=== PATIENT | male | born 1990 | race Caucasian/White ===

== ENCOUNTER 2016-11-24 21:11 | Emergency (ER) | payer OTHER ==
[2016-11-24] MEDS ORDERED: NORCO, ANEXSIA 5/325MG TABLET (HYDROcodone/ACETAMINOPHEN) As Ordered ONE (22:47)
[2016-11-24 22:53] LABS: BASO # 0.1 K/mm3 (0.0-0.2); BASO % 1.1 % (0.0-1.0); EOS # 0.2 K/mm3 (0.0-0.50); EOS % 1.8 % (0.0-3.0); LARGE UNSTAINED CELL # 0.2 K/mm3 (0.0-0.4); LARGE UNSTAINED CELL % 1.3 % (0.0-4.0); LYMPH # 3.8 K/mm3 (1.5-6.5); LYMPH % 28.3 % (24.0-44.0); MEAN CORPUSCULAR HEMOGLOBIN 29.6 pg (27.0-33.0); MEAN CORPUSCULAR HGB CONC 34.3 g/dl (32.0-36.5); MEAN CORPUSCULAR VOLUME 86.3 fl (80.0-96.0); MONO # 0.8 K/mm3 (0.0-0.8); NEUTROPHILS # 7.8 K/mm3 (1.8-7.7); NEUTROPHILS % 61.6 % (36.0-66.0); PLATELET COUNT, AUTOMATED 170 k/mm3 (150-450); RED CELL DISTRIBUTION WIDTH 12.6 % (11.5-14.5); WHITE BLOOD COUNT 12.7 K/mm3 (4.0-10.0)
[2016-11-24 23:10] LABS: ERYTHROCYTE SEDIMENTATION RATE 2 mm/hr (0-15)
[2016-11-24 23:18] LABS: ANION GAP 7 MEQ/L (8-16); BLOOD UREA NITROGEN 12 MG/DL (7-18); CALCIUM LEVEL 8.5 MG/DL (8.5-10.1); CARBON DIOXIDE LEVEL 27 MEQ/L (21-32); CHLORIDE LEVEL 108 MEQ/L (98-107); CREATININE FOR GFR 0.78 MG/DL (0.70-1.30); GLOMERULAR FILTRATION RATE > 60.0 (>60); GLUCOSE, FASTING 98 MG/DL (70-105); POTASSIUM SERUM 3.8 MEQ/L (3.5-5.1); SODIUM LEVEL 142 MEQ/L (136-145); URIC ACID 2.5 MG/DL (3.5-7.2)
[2016-11-24] MEDS ORDERED: CLINDAMYCIN INJ 900MG/6ML VIAL As Ordered ONE (23:59)
[2016-11-25] MEDS ORDERED: NORCO 5/325MG TABLET (BULK) As Ordered ONE (00:44)
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
--- NOTE | 2016-11-25 11:24 | REP ---
Clinical: Deformity and swelling. Technique: AP, lateral, bilateral oblique and sunrise views of the left knee. Findings: Moderate prepatellar soft tissue swelling is appreciated without evidence for acute fracture, dislocation, or effusion. The osseous structures and joint spaces appear relatively normal. No subcutaneous emphysema or foreign body identified. Impression: Prepatellar soft tissue swelling. No acute fracture or dislocation. No foreign body. Signed by Jack Ernandez MD 11/25/2016 01:56 A
[2016-11-26] MEDS ORDERED: KEPP1000 PO (02:58)
[2016-11-26] MEDS ORDERED: FISH1000 PO (02:58)
[2016-11-26] MEDS ORDERED: CARB400T4 PO (02:58)
[2016-11-26] MEDS ORDERED: VITMTA PO (02:58)
[2016-11-26] MEDS ORDERED: BACT800T5 PO (02:58)
[2016-11-26] MEDS ORDERED: HYDR-3716 PO (02:58)
--- NOTE | 2016-11-27 01:52 | EDDOCDS ---
Physician Documentation [facility] Name: Hari Ventura Age: 26 yrs Sex: Male : 1990 Arrival Date: 11/24/2016 Time: 21:11 Bed I1 / M1 Private MD: NO PRIMARY PHYSICIAN, . Disposition: 11/25/16 00:42 Discharged to Home/Self Care. Impression: Cellulitis of left lower limb - KNEE. - Condition is Stable. - Discharge Instructions: Cellulitis. - Prescriptions for Bactrim DS 800- 160 mg Oral Tablet - take 1 tablet by ORAL route every 12 hours for 10 days; 20 tablet. - Medication Reconciliation, Local Pharmacy Hours form. - Follow up: Emergency Department; When: Tomorrow; Reason: Wound/Symptom Recheck, Recheck today's complaints, Continuance of care. - Problem is new. - Symptoms have improved. - Notes: USE MEDICATION INSTRUCTED, FOLLOW UP IN THE ER TOMORROW, RETURN TO THE ER SOONER IF SYMPTOMS WORSEN OR BECOME CONCERNING Historical: - Allergies: no known allergies; - Home Meds: 1. Tegretol 200 mg Oral tab 1 tab every 12 hours 2. Keppra 1,000 mg Oral tab 3 tab daily - PMHx: Seizure Disorder; - PSHx: spinal surgery for broken L2 2 rods and 4 screws placed in lumbar area.; - Social history: Smoking status: Patient uses tobacco products, light tobacco smoker. No barriers to communication noted, The patient speaks fluent Armenian. - Family history: Not pertinent. - : The pt / caregiver states he / she is not on anticoagulants. Home medication list is obtained from the patient. - Exposure Risk Screening:: None identified. Vital Signs: 11/24 21:12 BP 127 / 68; Pulse 66; Resp 18; Temp 98.1; Pulse Ox 100% ; Weight 59.87 kg / 131.99 elp lbs; Height 5 ft. 10 in. (177.80 cm); Pain 7/10; 11/25 00:49 BP 130 / 70; Pulse 70; Resp 18; Temp 98.8(O); Pulse Ox 99% on R/A; Pain 3/10; jmb 11/24 21:12 Body Mass Index 18.94 (59.87 kg, 177.80 cm) elp MDM: 11/24 22:20 -Blood Culture (Adults Only), peripheral from different site, or from device/port/PICC ck7 etc. if present ordered. 22:20 IV Saline Lock ordered. ck7 22:20 NS 0.9% 1000 ml IV at bolus once ordered. ck7 22:20 HYDROcodone-acetaminophen 5 mg-325 mg 1 tabs PO once ordered. ck7 22:22 Knee, Complete Ordered. EDMS 22:22 CBC with Diff Ordered. EDMS 22:22 ESR Ordered. EDMS 22:22 CRP Ordered. EDMS 22:22 MED Profile Ordered. EDMS 22:22 -Blood Culture Ordered. EDMS 22:22 Uric Acid Ordered. EDMS 22:55 -Blood Culture (Adults Only), peripheral from different site, or from device/port/PICC jmb etc. if present complete. 23:22 CBC with Diff Reviewed. ck7 23:22 CRP Reviewed. ck7 23:22 MED Profile Reviewed. ck7 23:22 Uric Acid Reviewed. ck7 23:22 ESR Reviewed. ck7 23:49 Clindamycin 900 mg IVPB once over 30 mins; dilute in 50mL of NS or D5W ordered. ck7 11/25 00:[address] [facility] 00:43 HYDROcodone-acetaminophen 4 pack- 5 mg-325 mg 1 packets PO Per package directions; ck7 Dispense with patient. 1 po q4h prn for pain ordered. 01:27 [facility] Payment Agreement was scanned into [employer] and attached to record. [facility] 11:23 T-Sheet-- Draft Copy was scanned into [employer] and attached to record. gb Administered Medications: 11/24 22:55 Drug: NS 0.9% 1000 ml [sodium chloride 0.9 % intravenous solution] Route: IV; Rate: jmb bolus; Site: left antecubital; 22:55 Drug: HYDROcodone-acetaminophen 1 tabs [hydrocodone 5 mg-acetaminophen 325 mg tablet (1 jmb tabs)] Route: PO; 11/25 00:06 Drug: Clindamycin 900 mg [clindamycin 600 mg/50 mL in 5 % dextrose intravenous jmb piggyback] Route: IVPB; Infused Over: 30 mins; Site: left antecubital; 00:48 Drug: HYDROcodone-acetaminophen 4 pack- 1 packets [hydrocodone 5 mg-acetaminophen 325 jmb mg tablet (1 tabs)] {Co-Signature: cz (Ethan Ortega RN).} Route: PO; Signatures: Dispatcher [employer] EDAlvina Mueller, Reg Reg gb Shavonne Mendez RN RN rs3 Olvin Mattson, RPA-C RPA-Cck7 Johny Anaya RN RN jmb Hook, Sandra [facility] Ethan umaña The chart was reviewed and I authenticate all verbal orders and agree with the evaluation and treatment provided.Attachments: 01:27 [facility] Payment Agreement [facility] 11:23 T-Sheet-- Draft Copy Chart Complete MTDD
--- NOTE | 2016-11-27 01:52 | EDDOCDS ---
Physician Documentation [facility] Name: Hari Ventura Age: 26 yrs Sex: Male : 1990 Arrival Date: 11/24/2016 Time: 21:11 Bed I1 / M1 Private MD: NO PRIMARY PHYSICIAN, . Disposition: 11/25/16 00:42 Discharged to Home/Self Care. Impression: Cellulitis of left lower limb - KNEE. - Condition is Stable. - Discharge Instructions: Cellulitis. - Prescriptions for Bactrim DS 800- 160 mg Oral Tablet - take 1 tablet by ORAL route every 12 hours for 10 days; 20 tablet. - Medication Reconciliation, Local Pharmacy Hours form. - Follow up: Emergency Department; When: Tomorrow; Reason: Wound/Symptom Recheck, Recheck today's complaints, Continuance of care. - Problem is new. - Symptoms have improved. - Notes: USE MEDICATION INSTRUCTED, FOLLOW UP IN THE ER TOMORROW, RETURN TO THE ER SOONER IF SYMPTOMS WORSEN OR BECOME CONCERNING Historical: - Allergies: no known allergies; - Home Meds: 1. Tegretol 200 mg Oral tab 1 tab every 12 hours 2. Keppra 1,000 mg Oral tab 3 tab daily - PMHx: Seizure Disorder; - PSHx: spinal surgery for broken L2 2 rods and 4 screws placed in lumbar area.; - Social history: Smoking status: Patient uses tobacco products, light tobacco smoker. No barriers to communication noted, The patient speaks fluent Swedish. - Family history: Not pertinent. - : The pt / caregiver states he / she is not on anticoagulants. Home medication list is obtained from the patient. - Exposure Risk Screening:: None identified. Vital Signs: 11/24 21:12 BP 127 / 68; Pulse 66; Resp 18; Temp 98.1; Pulse Ox 100% ; Weight 59.87 kg / 131.99 elp lbs; Height 5 ft. 10 in. (177.80 cm); Pain 7/10; 11/25 00:49 BP 130 / 70; Pulse 70; Resp 18; Temp 98.8(O); Pulse Ox 99% on R/A; Pain 3/10; jmb 11/24 21:12 Body Mass Index 18.94 (59.87 kg, 177.80 cm) elp MDM: 11/24 22:20 -Blood Culture (Adults Only), peripheral from different site, or from device/port/PICC ck7 etc. if present ordered. 22:20 IV Saline Lock ordered. ck7 22:20 NS 0.9% 1000 ml IV at bolus once ordered. ck7 22:20 HYDROcodone-acetaminophen 5 mg-325 mg 1 tabs PO once ordered. ck7 22:22 Knee, Complete Ordered. EDMS 22:22 CBC with Diff Ordered. EDMS 22:22 ESR Ordered. EDMS 22:22 CRP Ordered. EDMS 22:22 MED Profile Ordered. EDMS 22:22 -Blood Culture Ordered. EDMS 22:22 Uric Acid Ordered. EDMS 22:55 -Blood Culture (Adults Only), peripheral from different site, or from device/port/PICC jmb etc. if present complete. 23:22 CBC with Diff Reviewed. ck7 23:22 CRP Reviewed. ck7 23:22 MED Profile Reviewed. ck7 23:22 Uric Acid Reviewed. ck7 23:22 ESR Reviewed. ck7 23:49 Clindamycin 900 mg IVPB once over 30 mins; dilute in 50mL of NS or D5W ordered. ck7 11/25 00:[address] [facility] 00:43 HYDROcodone-acetaminophen 4 pack- 5 mg-325 mg 1 packets PO Per package directions; ck7 Dispense with patient. 1 po q4h prn for pain ordered. 01:27 [facility] Payment Agreement was scanned into [employer] and attached to record. [facility] 11:23 T-Sheet-- Draft Copy was scanned into [employer] and attached to record. gb Administered Medications: 11/24 22:55 Drug: NS 0.9% 1000 ml [sodium chloride 0.9 % intravenous solution] Route: IV; Rate: jmb bolus; Site: left antecubital; 22:55 Drug: HYDROcodone-acetaminophen 1 tabs [hydrocodone 5 mg-acetaminophen 325 mg tablet (1 jmb tabs)] Route: PO; 11/25 00:06 Drug: Clindamycin 900 mg [clindamycin 600 mg/50 mL in 5 % dextrose intravenous jmb piggyback] Route: IVPB; Infused Over: 30 mins; Site: left antecubital; 00:48 Drug: HYDROcodone-acetaminophen 4 pack- 1 packets [hydrocodone 5 mg-acetaminophen 325 jmb mg tablet (1 tabs)] {Co-Signature: cz (Ethan Ortega RN).} Route: PO; Signatures: Dispatcher [employer] EDAlvina Mueller, Reg Reg gb Shavonne Mendez RN RN rs3 Olvin Mattson, RPA-C RPA-Cck7 Johny Anaya RN RN jmb Hook, Sandra [facility] Ethan umaña The chart was reviewed and I authenticate all verbal orders and agree with the evaluation and treatment provided.Attachments: 01:27 [facility] Payment Agreement [facility] 11:23 T-Sheet-- Draft Copy Chart Complete MTDD
--- NOTE | 2016-11-27 01:52 | EDDOCDS ---
Nurse's Notes [facility] Name: Hari Ventura Age: 26 yrs Sex: Male : 1990 Arrival Date: 11/24/2016 Time: 21:11 Bed I1 / M1 Private MD: NO PRIMARY PHYSICIAN, . Diagnosis: Cellulitis of left lower limb-KNEE Presentation: 11/24 21:15 Presenting complaint: Patient states: Woke up with L knee swelling/redness/ pain this rs3 morning. no known injury. Adult Sepsis Screening: The patient does not have new or worsening altered mentation. Adult Sepsis Screening: Patient's respiratory rate is less than 22. Systolic blood pressure is greater than 100. Patient has a qSOFA score of 0- Negative Sepsis Screen. Suicide/Homicide risk assessment- the patient denies having any suicidal and/or homicidal ideations and does not present with any other emotional, behavioral or mental health complaints. Status: Patient is not a guest services or dependent. Transition of care: patient was not received from another setting of care. 21:15 Acuity: ESTELLE Level 3 rs3 21:15 Method Of Arrival: Walkin/Carried/Asstd rs3 Triage Assessment: 21:17 General: Appears in no apparent distress. Pain: Location: left knee. HIV screening NA rs3 for this visit Offered previously. Historical: - Allergies: no known allergies; - Home Meds: 1. Tegretol 200 mg Oral tab 1 tab every 12 hours 2. Keppra 1,000 mg Oral tab 3 tab daily - PMHx: Seizure Disorder; - PSHx: spinal surgery for broken L2 2 rods and 4 screws placed in lumbar area.; - Social history: Smoking status: Patient uses tobacco products, light tobacco smoker. No barriers to communication noted, The patient speaks fluent Nigerian. - Family history: Not pertinent. - : The pt / caregiver states he / she is not on anticoagulants. Home medication list is obtained from the patient. - Exposure Risk Screening:: None identified. Screenin:55 Screening information is obtained from the patient. Fall risk: No risks identified. jmb Assistance ADL's: requires no assistance with activities of daily living. Abuse/DV Screen: The patient / caregiver reports he/she is: not in a situation that causes fear, pain or injury. Nutritional screening: No deficits noted. home support is adequate. 11/25 00:49 Advance Directives: Currently, there is no health care proxy. There is no active DNR jmb order. There is no living will. There is no Power of Nurse Licensed Practical. Assessment: 11/24 22:55 General: Appears in no apparent distress, comfortable, Behavior is appropriate for age, jmb cooperative. Pain: Location: left knee Pain currently is 10 out of 10 on a pain scale. Neurological: Level of Consciousness is awake, alert, obeys commands, Oriented to person, place, time, Ceramics Test Engineer are equal bilaterally Speech is normal, Facial symmetry appears normal, Facial symmetry: tongue is midline. Cardiovascular: Capillary refill < 3 seconds Heart tones S1 S2 present Pulses are all present. Rhythm is regular. Respiratory: Airway is patent Respiratory effort is even, unlabored, Respiratory pattern is regular, symmetrical, Breath sounds are clear bilaterally. GI: Abdomen is flat, non- distended Bowel sounds present X 4 quads. Abd is soft X 4 quads. Derm: Skin is pink, warm & dry. Musculoskeletal: Range of motion intact in all extremities. 23:33 General: Appears in no apparent distress, comfortable, Behavior is appropriate for age, jmb cooperative, Patient sitting on stretcher, texting on cell phone. NO voiced complaints at this time. . Neurological: Level of Consciousness is awake, alert, obeys commands, Oriented to person, place, time. Respiratory: Airway is patent Respiratory effort is even, unlabored, Respiratory pattern is regular, symmetrical. 11/25 00:06 General: Appears in no apparent distress, comfortable, Behavior is appropriate for age, jmb cooperative, Patient sitting on side of stretcher, antibiotic infusing per Tyler Gonzales's order. NO voiced complaints at this time. . Neurological: Level of Consciousness is awake, alert, obeys commands. Respiratory: Airway is patent Respiratory effort is even, unlabored, Respiratory pattern is regular, symmetrical. 00:49 General: Patient instructed on discharge instructions. Patient asked if there were any b questions regarding discharge, patient stated no. IV discontinued per hospital policy. Patient signed discharge instructions. Patient discharged in stable condition. . Vital Signs: 11/24 21:12 BP 127 / 68; Pulse 66; Resp 18; Temp 98.1; Pulse Ox 100% ; Weight 59.87 kg; Height 5 elp ft. 10 in. (177.80 cm); Pain 7/10; 11/25 00:49 BP 130 / 70; Pulse 70; Resp 18; Temp 98.8(O); Pulse Ox 99% on R/A; Pain 3/10; jmb 11/24 21:12 Body Mass Index 18.94 (59.87 kg, 177.80 cm) elp Vitals: 11/24 21:12 Log In Time: November 24, 2016 at 21:10. elp ED Course: 21:12 Patient visited by Katie Canales PCA. elp 21:12 NO PRIMARY PHYSICIAN, . is Private Physician. elp 21:12 Patient moved to Waiting elp 21:13 Patient visited by Katie Canales PCA. elp 21:13 Patient moved to Pre RCE elp 21:17 Triage Initiated rs3 21:57 Patient moved to Triage 3 cln 22:01 Ol[facility] Mattson [facility]-C [facility] ck7 22:01 Milton Stoner DO is Attending Physician. ck7 22:01 Patient visited by Olvin Mattson RPA-C. ck7 22:21 Patient moved to I1 / M1 kmg1 22:24 Patient moved to Radiology rolf 22:34 Patient moved to I1 / M1 rolf 22:40 Patient visited by Olvin Mattson RPA-C. ck7 22:46 Uric Acid Sent. jmb 22:46 MED Profile Sent. jmb 22:46 CRP Sent. jmb 22:47 ESR Sent. jmb 22:47 CBC with Diff Sent. jmb 22:55 The patient / caregiver is instructed regarding the plan of care and ED course. afsanehb 22:55 Inserted saline lock: 20 gauge in left antecubital area and blood collected. The b patient tolerated the procedure well. Labs drawn. (by ED staff). Sent per order to lab. Labs/Blood culture drawn. 22:57 Patient visited by Johny Anaya,JAGDEEP. romeo 23:33 Patient visited by Johny Anaya,JAGDEEP. jmb 11/25 00:07 Patient visited by Johny Anaya,RN. jmb 00:38 Patient visited by Olvin Mattson RPA-C. ck7 00:49 Discontinued lock intact, bleeding controlled, pressure dressing applied, No jmb redness/swelling at site. No procedures done that require assistance. 01: [facility] Payment Agreement was scanned into [employer] and attached to record. [facility] 11:23 T-Sheet-- Draft Copy was scanned into [employer] and attached to record. gb 11:53 Knee, Complete Returned. EDMS Administered Medications: 11/24 22:55 Drug: NS 0.9% 1000 ml [sodium chloride 0.9 % intravenous solution] Route: IV; Rate: jmb bolus; Site: left antecubital; 22:55 Drug: HYDROcodone-acetaminophen 1 tabs [hydrocodone 5 mg-acetaminophen 325 mg tablet (1 jmb tabs)] Route: PO; 11/25 00:06 Drug: Clindamycin 900 mg [clindamycin 600 mg/50 mL in 5 % dextrose intravenous jmb piggyback] Route: IVPB; Infused Over: 30 mins; Site: left antecubital; 00:48 Drug: HYDROcodone-acetaminophen 4 pack- 1 packets [hydrocodone 5 mg-acetaminophen 325 jmb mg tablet (1 tabs)] {Co-Signature: cz (Ethan Ortega RN).} Route: PO; Order Results: Lab Order: CBC with Diff; SPEC'M 11/24/16 22:42 Test: WHITE BLOOD COUNT; Value: 12.7; Range: 4.0-10.0; Abnormal: Above high normal; Units: K/mm3; Status: F Test: RED BLOOD COUNT; Value: 4.96; Range: 4.30-6.10; Units: M/mm3; Status: F Test: HEMOGLOBIN; Value: 14.7; Range: 14.0-18.0; Units: g/dl; Status: F Test: HEMATOCRIT; Value: 42.8; Range: 42.0-52.0; Units: %; Status: F Test: MEAN CORPUSCULAR VOLUME; Value: 86.3; Range: 80.0-96.0; Units: fl; Status: F Test: MEAN CORPUSCULAR HEMOGLOBIN; Value: 29.6; Range: 27.0-33.0; Units: pg; Status: F Test: MEAN CORPUSCULAR HGB CONC; Value: 34.3; Range: 32.0-36.5; Units: g/dl; Status: F Test: RED CELL DISTRIBUTION WIDTH; Value: 12.6; Range: 11.5-14.5; Units: %; Status: F Test: PLATELET COUNT, AUTOMATED; Value: 170; Range: 150-450; Units: k/mm3; Status: F Test: NEUTROPHILS %; Value: 61.6; Range: 36.0-66.0; Units: %; Status: F Test: LYMPH %; Value: 28.3; Range: 24.0-44.0; Units: %; Status: F Test: MONO %; Value: 6.0; Range: 0.0-5.0; Abnormal: Above high normal; Units: %; Status: F Test: EOS %; Value: 1.8; Range: 0.0-3.0; Units: %; Status: F Test: BASO %; Value: 1.1; Range: 0.0-1.0; Abnormal: Above high normal; Units: %; Status: F Test: LARGE UNSTAINED CELL %; Value: 1.3; Range: 0.0-4.0; Units: %; Status: F Test: NEUTROPHILS #; Value: 7.8; Range: 1.8-7.7; Abnormal: Above high normal; Units: K/mm3; Status: F Test: LYMPH #; Value: 3.8; Range: 1.5-6.5; Units: K/mm3; Status: F Test: MONO #; Value: 0.8; Range: 0.0-0.8; Units: K/mm3; Status: F Test: EOS #; Value: 0.2; Range: 0.0-0.50; Units: K/mm3; Status: F Test: BASO #; Value: 0.1; Range: 0.0-0.2; Units: K/mm3; Status: F Test: LARGE UNSTAINED CELL #; Value: 0.2; Range: 0.0-0.4; Units: K/mm3; Status: F Lab Order: ESR; SPEC'M 11/24/16 22:42 Test: ERYTHROCYTE SEDIMENTATION RATE; Value: 2; Range: 0-15; Units: mm/hr; Status: F Lab Order: CRP; SPEC'M 11/24/16 22:42 Test: C REACTIVE PROTEIN QUANTITATIV; Value: 0.60; Range: 0.00-0.30; Abnormal: Above high normal; Units: MG/DL; Status: F Lab Order: MED Profile; SPEC'M 11/24/16 22:42 Test: GLUCOSE, FASTING; Value: 98; Range: 70-105; Units: MG/DL; Status: F Test: BLOOD UREA NITROGEN; Value: 12; Range: 7-18; Units: MG/DL; Status: F Test: CREATININE FOR GFR; Value: 0.78; Range: 0.70-1.30; Units: MG/DL; Status: F Test: GLOMERULAR FILTRATION RATE; Value: > 60.0; Range: >60; Status: F Test: SODIUM LEVEL; Value: 142; Range: 136-145; Units: MEQ/L; Status: F Test: POTASSIUM SERUM; Value: 3.8; Range: 3.5-5.1; Units: MEQ/L; Status: F Test: CHLORIDE LEVEL; Value: 108; Range: 98-107; Abnormal: Above high normal; Units: MEQ/L; Status: F Test: CARBON DIOXIDE LEVEL; Value: 27; Range: 21-32; Units: MEQ/L; Status: F Test: ANION GAP; Value: 7; Range: 8-16; Abnormal: Below low normal; Units: MEQ/L; Status: F Test: CALCIUM LEVEL; Value: 8.5; Range: 8.5-10.1; Units: MG/DL; Status: F Test Note: ; Units are mL/min/1.73 m2 Chronic Kidney Disease Staging per NKF: Stage I & II GFR >=60 Normal to Mildly Decreased Stage III GFR 30-59 Moderately Decreased Stage IV GFR 15-29 Severely Decreased Stage V GFR <15 Very Little GFR Left ESRD GFR <15 on COLLISION REPAIR TECHNICIAN Lab Order: -Blood Culture; SPEC'M 11/24/16 22:42 Test: BLOOD CULTURE; Value: No growth after 24 hours . All specimens observed; Status: F Test: BLOOD CULTURE; Value: for 5 days. Results final at that time.; Status: F Test: BLOOD CULTURE; Value: No Growth after 48 hours. All Specimens observed; Status: F Test: BLOOD CULTURE; Value: for 7 days. Results final at that time.; Status: F Lab Order: Uric Acid; SPEC'M 11/24/16 22:42 Test: URIC ACID; Value: 2.5; Range: 3.5-7.2; Abnormal: Below low normal; Units: MG/DL; Status: F Radiology Order: Knee, Complete Test: Knee, Complete REASON FOR EXAMINATION: Deformity/Swelling; Clinical: Deformity and swelling.; ; Technique: AP, lateral, bilateral oblique and sunrise views of the left knee.; ; Findings:; Moderate prepatellar soft tissue swelling is appreciated without evidence for; acute fracture, dislocation, or effusion. The osseous structures and joint; spaces appear relatively normal. No subcutaneous emphysema or foreign body; identified.; ; Impression:; Prepatellar soft tissue swelling.; No acute fracture or dislocation.; No foreign body.; ; ; Signed by; Jack Ernandez MD 11/25/2016 01:56 A; Outcome: 00:42 Discharge ordered by Provider. ck7 00:49 Discharge Assessment: Patient awake, alert and oriented x 3. No cognitive and/or jmb functional deficits noted. Patient verbalized understanding of disposition instructions. Patient awake and alert. obeys commands, Oriented to person, place and time. Patient verbalized understanding of disposition instructions. Patient has no functional deficits. patient administered narcotics - yes. Pt provided with safe discharge. The following High Risk Discharge criteria are identified: None. Discharged to home ambulatory, with parent. Condition: stable Condition: improved. Discharge instructions given to patient, Instructed on discharge instructions, follow up and referral plans. medication usage, Demonstrated understanding of instructions, medications, Pt was receptive of discharge instructions/ teaching. Prescriptions given X 1. No special radiology studies were completed. Property sent home with patient. 00:51 Patient left the ED. romeo Signatures: Dispatcher [employer] EDMS Elisa Mccoy, RN RN kmg1 Tyler Kirkland Gloria, Reg Reg gb Shavonne MendezRN RN rs3 Olvin Mattson, RPA-C RPA-Cck7 Katie Canales, LABORER PIPELINES LABORER PIPELINES Johny YaRN RN Kay Sinha Crystal, LABORER PIPELINES LABORER PIPELINES derrick Ortega RN cz Chart Complete MTDD
== END 2016-11-25 00:51 | disposition home or self-care (01) ==
LOC: M ED 21:11
DX: L03.116 Cellulitis of left lower limb (principal); G40.909 Epilepsy, unspecified, not intractable, without status epilepticus; Z79.899 Other long term (current) drug therapy; F17.210 Nicotine dependence, cigarettes, uncomplicated

== ENCOUNTER 2016-11-25 21:13 | Inpatient (IN) | payer OTHER ==
[~2016-11-25] VITALS: Ht 177.8 cm; Wt 66.0 kg
[2016-11-26 00:58] LABS: BASO # 0.1 K/mm3 (0.0-0.2); BASO % 0.5 % (0.0-1.0); EOS # 0.2 K/mm3 (0.0-0.50); EOS % 1.2 % (0.0-3.0); LARGE UNSTAINED CELL # 0.2 K/mm3 (0.0-0.4); LARGE UNSTAINED CELL % 1.2 % (0.0-4.0); LYMPH # 3.4 K/mm3 (1.5-6.5); LYMPH % 25.6 % (24.0-44.0); MEAN CORPUSCULAR HEMOGLOBIN 29.1 pg (27.0-33.0); MEAN CORPUSCULAR VOLUME 88.3 fl (80.0-96.0); MONO # 0.5 K/mm3 (0.0-0.8); NEUTROPHILS # 8.9 K/mm3 (1.8-7.7); NEUTROPHILS % 67.5 % (36.0-66.0); PLATELET COUNT, AUTOMATED 176 k/mm3 (150-450); RED CELL DISTRIBUTION WIDTH 11.7 % (11.5-14.5); WHITE BLOOD COUNT 13.2 K/mm3 (4.0-10.0)
[2016-11-26] MEDS ORDERED: NORCO, ANEXSIA 5/325MG TABLET (HYDROcodone/ACETAMINOPHEN) As Ordered ONE (01:05)
[2016-11-26 01:40] LABS: ERYTHROCYTE SEDIMENTATION RATE 7 mm/hr (0-15)
[2016-11-26] MEDS ORDERED: ZOSYN 3.375 GM VIAL (J2543) As Ordered ONE (02:09)
[2016-11-26] MEDS ORDERED: NORCO, ANEXSIA 5/325MG TABLET (HYDROcodone/ACETAMINOPHEN) PO PRN (02:45)
[2016-11-26] MEDS ORDERED: ACETAMINOPHEN TAB 650MG DOSE (2X325MG) PO PRN (02:45)
[2016-11-26] MEDS ORDERED: VANCOMYCIN 1000 MG/20 ML VIAL (J3370) As Ordered ONE (02:56)
[2016-11-26] MEDS ORDERED: FISH1000 PO (02:58)
[2016-11-26] MEDS ORDERED: CARB400T4 PO (02:58)
[2016-11-26] MEDS ORDERED: BACT800T5 PO (02:58)
[2016-11-26] MEDS ORDERED: HYDR-3716 PO (02:58)
[2016-11-26] MEDS ORDERED: VITMTA PO (02:58)
[2016-11-26] MEDS ORDERED: KEPP1000 PO (02:58)
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
--- NOTE | 2016-11-26 04:01 | EDDOCDS ---
Nurse's Notes [facility] Name: Hari Ventura Age: 26 yrs Sex: Male : 1990 Arrival Date: 11/25/2016 Time: 21:13 Bed 7 Private MD: NO PRIMARY PHYSICIAN, . Diagnosis: Cellulitis of left lower limb-LEFT KNEE Presentation: 11/25 21:38 Presenting complaint: Patient states: Was seen last night for left knee cellulitis, pt. lf1 states it was outlined and it has now moved about an inch outside the border. Pain is currently 7/10 and described as burning. Adult Sepsis Screening: The patient does not have new or worsening altered mentation. Patient's respiratory rate is less than 22. Systolic blood pressure is greater than 100. Patient has a qSOFA score of 0- Negative Sepsis Screen. Suicide/Homicide risk assessment- the patient denies having any suicidal and/or homicidal ideations and does not present with any other emotional, behavioral or mental health complaints. 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 Transition of care: patient was not received from another setting of care. 21:38 Acuity: ESTELLE Level 3 lf1 21:38 Method Of Arrival: Walkin/Carried/Asstd lf1 Triage Assessment: 21:41 General: Appears comfortable, Behavior is cooperative. Pain: Location: lateral aspect lf1 of left knee, posterior aspect of left knee, medial aspect of left knee and left knee Pain currently is 7 out of 10 on a pain scale. HIV screening NA for this visit Offered previously. Neurological: Level of Consciousness is awake, alert. Respiratory: Respiratory effort is even, unlabored. GI: Denies nausea, vomiting. Derm: Reports redness and swelling to left knee - unable to visualize in Triage area due to clothing. Historical: - Allergies: No known drug Allergies; - Home Meds: 1. Keppra 1,000 mg Oral tab 3 tab daily 2. Tegretol 200 mg Oral tab 1 tab every 12 hours 3. Bactrim DS 800-160 mg Oral tab 1 tab every 12 hours 4. hydrocodone-acetaminophen 5-325 mg Oral tab 1 tab every 6 hours (Last dose: 11/25/2016 18:00) - PMHx: Seizure Disorder; - PSHx: spinal surgery for broken L2 2 rods and 4 screws placed in lumbar area.; - Social history: Smoking status: Patient uses tobacco products, current every day smoker. No barriers to communication noted, The patient speaks fluent Algerian, Speaks appropriately for age, Preferred Language: Algerian. - Family history: Not pertinent. - : The pt / caregiver states he / she is not on anticoagulants. Home medication list is obtained from the patient. - Exposure Risk Screening:: None identified. Screenin:42 Screening information is obtained from the patient. Fall risk: No risks identified. lf1 Assistance ADL's: requires no assistance with activities of daily living. Abuse/DV Screen: The patient / caregiver reports he/she is: not in a situation that causes fear, pain or injury. Nutritional screening: No deficits noted. Advance Directives: Currently, there is no health care proxy. home support is adequate. Assessment: 11/26 00:00 Adult Sepsis Screening: The patient does not have new or worsening altered mentation. lf1 Patient's respiratory rate is less than 22. Systolic blood pressure is greater than 100. Patient has a qSOFA score of 0- Negative Sepsis Screen. General: Appears in no apparent distress, comfortable, Behavior is anxious, cooperative. Pain: Location: left knee Pain currently is 7 out of 10 on a pain scale. Neurological: Level of Consciousness is awake, alert. Respiratory: Respiratory effort is even, unlabored. GI: Denies nausea, vomiting. 01:00 General: Appears in no apparent distress, comfortable, Behavior is appropriate for age, js15 cooperative. Neurological: Level of Consciousness is awake, alert, obeys commands, Oriented to person, place, time. Cardiovascular: Capillary refill < 3 seconds. Respiratory: Airway is patent Respiratory effort is even, unlabored, Respiratory pattern is regular, symmetrical. Derm: Skin is red, Swollen area noted on left knee. 02:15 Reassessment: Patient appears in no apparent distress at this time. Pt resting on js15 stretcher, awake and alert; respirations even and unlabored; skin warm, dry. 03:30 Reassessment: Patient appears in no apparent distress at this time. Patient denies pain js15 at this time. Patient states feeling better. Patient states symptoms have improved. Pt resting comfortably on stretcher, lights dimmed; respirations even and unlabored; skin warm, dry. Vital Signs: 11/25 21:15 BP 120 / 59; Pulse 72; Resp 18 S; Temp 98.6(O); Pulse Ox 97% on R/A; Weight 59.87 kg gr2 (R); Height 5 ft. 10 in. (177.80 cm) (R); Pain 5/10; 11/26 00:00 BP 136 / 79; Pulse 84; Resp 18; Temp 97.9(TE); Pulse Ox 98% on R/A; Pain 7/10; lf1 03:23 BP 117 / 86; Pulse 82; Resp 18; Temp 96.0(O); Pulse Ox 97% on R/A; Pain 1/10; js15 11/25 21:15 Body Mass Index 18.94 (59.87 kg, 177.80 cm) gr2 Vitals: 11/25 21:15 Log In Time: November 25, 2016 at 21:15. gr2 ED Course: 21:14 Patient visited by Latasha Ramos. gr2 21:14 Patient moved to Waiting gr2 21:15 NO PRIMARY PHYSICIAN, . is Private Physician. gr2 21:16 Patient visited by Latasha Ramos. gr2 21:16 Patient moved to Pre RCE gr2 21:39 Triage Initiated lf1 23:58 Patient moved to 7 cz 11/26 00:00 Patient visited by Shea Miller,RN. lf1 00:01 Patient visited by Shea Miller,JAGDEEP. lf1 00:02 Olvin Mattson RPA-C is PHCP. ck7 00:02 Milton Stoner DO is Attending Physician. ck7 00:02 Patient visited by Olvin Mattson RPA-C. ck7 00:35 Patient visited by Olvin Mattson RPA-C. ck7 00:35 CRP Sent. cln 00:35 ESR Sent. cln 00:35 CBC with Diff Sent. cln 01:10 Patient visited by Olvin Mattson RPA-C. ck7 01:45 Patient visited by Olvin Mattson RPA-C. ck7 01:49 Inserted saline lock: 18 gauge in right forearm The patient tolerated the procedure js15 well. 01:58 Eri Antoine is Hospitalizing Provider. ck7 02:00 The patient / caregiver is instructed regarding the plan of care and ED course. js15 02:53 [facility] Payment Agreement was scanned into [employer] and attached to record. hs2 03:58 No procedures done that require assistance. js15 Administered Medications: 01:10 Drug: HYDROcodone-acetaminophen 1 tabs [hydrocodone 5 mg-acetaminophen 325 mg tablet (1 js15 tabs)] Route: PO; 02:19 Drug: Piperacillin-Tazobactam 3.375 grams [piperacillin-tazobactam 3.375 gram js15 intravenous solution] Route: IVPB; Infused Over: 30 mins; Site: right forearm; 03:35 Drug: vancomycin 1 grams [vancomycin 1,000 mg intravenous injection] Route: IVPB; js15 Infused Over: 60 mins; Site: right forearm; Order Results: Lab Order: CBC with Diff; SPEC'M 11/26/16 00:26 Test: WHITE BLOOD COUNT; Value: 13.2; Range: 4.0-10.0; Abnormal: Above high normal; Units: K/mm3; Status: F Test: RED BLOOD COUNT; Value: 4.75; Range: 4.30-6.10; Units: M/mm3; Status: F Test: HEMOGLOBIN; Value: 13.8; Range: 14.0-18.0; Abnormal: Below low normal; Units: g/dl; Status: F Test: HEMATOCRIT; Value: 41.9; Range: 42.0-52.0; Abnormal: Below low normal; Units: %; Status: F Test: MEAN CORPUSCULAR VOLUME; Value: 88.3; Range: 80.0-96.0; Units: fl; Status: F Test: MEAN CORPUSCULAR HEMOGLOBIN; Value: 29.1; Range: 27.0-33.0; Units: pg; Status: F Test: MEAN CORPUSCULAR HGB CONC; Value: 33.0; Range: 32.0-36.5; Units: g/dl; Status: F Test: RED CELL DISTRIBUTION WIDTH; Value: 11.7; Range: 11.5-14.5; Units: %; Status: F Test: PLATELET COUNT, AUTOMATED; Value: 176; Range: 150-450; Units: k/mm3; Status: F Test: NEUTROPHILS %; Value: 67.5; Range: 36.0-66.0; Abnormal: Above high normal; Units: %; Status: F Test: LYMPH %; Value: 25.6; Range: 24.0-44.0; Units: %; Status: F Test: MONO %; Value: 4.0; Range: 0.0-5.0; Units: %; Status: F Test: EOS %; Value: 1.2; Range: 0.0-3.0; Units: %; Status: F Test: BASO %; Value: 0.5; Range: 0.0-1.0; Units: %; Status: F Test: LARGE UNSTAINED CELL %; Value: 1.2; Range: 0.0-4.0; Units: %; Status: F Test: NEUTROPHILS #; Value: 8.9; Range: 1.8-7.7; Abnormal: Above high normal; Units: K/mm3; Status: F Test: LYMPH #; Value: 3.4; Range: 1.5-6.5; Units: K/mm3; Status: F Test: MONO #; Value: 0.5; Range: 0.0-0.8; Units: K/mm3; Status: F Test: EOS #; Value: 0.2; Range: 0.0-0.50; Units: K/mm3; Status: F Test: BASO #; Value: 0.1; Range: 0.0-0.2; Units: K/mm3; Status: F Test: LARGE UNSTAINED CELL #; Value: 0.2; Range: 0.0-0.4; Units: K/mm3; Status: F Lab Order: ESR; SPEC'M 11/26/16 00:26 Test: ERYTHROCYTE SEDIMENTATION RATE; Value: 7; Range: 0-15; Units: mm/hr; Status: F Lab Order: CRP; SPEC'M 11/26/16 00:26 Test: C REACTIVE PROTEIN QUANTITATIV; Value: 5.46; Range: 0.00-0.30; Abnormal: Above high normal; Units: MG/DL; Status: F Outcome: 01:58 Decision to Hospitalize by Provider. ck7 03:58 Discharge Assessment: Patient awake, alert and oriented x 3. No cognitive and/or js15 functional deficits noted. Patient verbalized understanding of disposition instructions. patient administered narcotics - yes. Patient was admitted to the hospital or transferred to another facility. The following High Risk Discharge criteria are identified: None. Admitted to Med/Surg accompanied by tech, via stretcher, with chart. Condition: unchanged. No special radiology studies were completed. Property :Personal belongings accompany Pt. 04:00 Patient left the ED. js15 Signatures: Ethan Ortega, RN RN cz Shea Miller,RN RN lf1 Olvin Mattson, RPA-C RPA-Cck7 Latasha Ramos gr2 Eri AroraRN RN js15 Celsa Muniz, Reg Reg hs2 Katie Javier, [employer] ARCHITECT [employer] ARCHITECT cln MTDD
--- NOTE | 2016-11-26 04:01 | EDDOCDS ---
Physician Documentation [facility] Name: Hari Ventura Age: 26 yrs Sex: Male : 1990 Arrival Date: 11/25/2016 Time: 21:13 Bed 7 Private MD: NO PRIMARY PHYSICIAN, . Disposition: 11/26/16 01:58 Hospitalization ordered by Eri Antoine for Inpatient Admission. Preliminary diagnosis is Cellulitis of left lower limb - LEFT KNEE. - Bed requested for 4 [place]. - Status is Inpatient Admission. js15 - Condition is Stable. - Problem is new. - Symptoms have improved. Historical: - Allergies: No known drug Allergies; - Home Meds: 1. Keppra 1,000 mg Oral tab 3 tab daily 2. Tegretol 200 mg Oral tab 1 tab every 12 hours 3. Bactrim DS 800-160 mg Oral tab 1 tab every 12 hours 4. hydrocodone-acetaminophen 5-325 mg Oral tab 1 tab every 6 hours (Last dose: 11/25/2016 18:00) - PMHx: Seizure Disorder; - PSHx: spinal surgery for broken L2 2 rods and 4 screws placed in lumbar area.; - Social history: Smoking status: Patient uses tobacco products, current every day smoker. No barriers to communication noted, The patient speaks fluent Ugandan, Speaks appropriately for age, Preferred Language: Ugandan. - Family history: Not pertinent. - : The pt / caregiver states he / she is not on anticoagulants. Home medication list is obtained from the patient. - Exposure Risk Screening:: None identified. Vital Signs: 11/25 21:15 BP 120 / 59; Pulse 72; Resp 18 S; Temp 98.6(O); Pulse Ox 97% on R/A; Weight 59.87 kg / gr2 131.99 lbs (R); Height 5 ft. 10 in. (177.80 cm) (R); Pain 5/10; 11/26 00:00 BP 136 / 79; Pulse 84; Resp 18; Temp 97.9(TE); Pulse Ox 98% on R/A; Pain 7/10; lf1 03:23 BP 117 / 86; Pulse 82; Resp 18; Temp 96.0(O); Pulse Ox 97% on R/A; Pain 1/10; js15 11/25 21:15 Body Mass Index 18.94 (59.87 kg, 177.80 cm) gr2 MDM: 00:07 HYDROcodone-acetaminophen 5 mg-325 mg 1 tabs PO once ordered. ck7 00:08 CBC with Diff Ordered. EDMS 00:08 ESR Ordered. EDMS 00:08 CRP Ordered. EDMS 01:10 CBC with Diff Reviewed. ck7 01:10 CRP Reviewed. ck7 01:17 ESR Reviewed. ck7 01:26 IV Saline Lock ordered. ck7 01:44 CBC with Diff Reviewed. ck7 01:44 ESR Reviewed. ck7 01:47 Financial registration complete. hs2 01:57 vancomycin 1 grams IVPB once over 60 mins; dilute in 250mL of NS or D5W ordered. ck7 01:57 Piperacillin-Tazobactam 3.375 grams IVPB once over 30 mins; dilute in 50mL of NS or D5W ck7 ordered. 01:58 BED REQUEST+ADM ordered. EDMS 02:49 Admission / Observation Status ordered. EDMS 02:51 REGULAR DIET ordered. EDMS 02:51 BASIC METABOLIC PROFILE Ordered. EDMS 02:51 COMPLETE BLOOD COUNT Ordered. EDMS 02:51 C REACTIVE PROTEIN QUANTITATIV Ordered. EDMS 02:53 [facility] Payment Agreement was scanned into [employer] and attached to record. hs2 03:03 MRSA SCREEN Ordered. EDMS 03:03 BLOOD CULTURES Ordered. EDMS 03:03 BLOOD CULTURES Ordered. EDMS Administered Medications: 01:10 Drug: HYDROcodone-acetaminophen 1 tabs [hydrocodone 5 mg-acetaminophen 325 mg tablet (1 js15 tabs)] Route: PO; 02:19 Drug: Piperacillin-Tazobactam 3.375 grams [piperacillin-tazobactam 3.375 gram js15 intravenous solution] Route: IVPB; Infused Over: 30 mins; Site: right forearm; 03:35 Drug: vancomycin 1 grams [vancomycin 1,000 mg intravenous injection] Route: IVPB; js15 Infused Over: 60 mins; Site: right forearm; Signatures: Dispatcher [employer] EDMS Joseph Shetty, Database Security Administrator Unit ml3 Shea Miller RN RN lf1 Olvin Mattson, RPA-C RPA-Cck7 Eri Arora RN RN js15 Celsa Muniz, Reg Reg hs2 The chart was reviewed and I authenticate all verbal orders and agree with the evaluation and treatment provided.Attachments: 02:53 [facility] Payment Agreement hs2 MTDD
[2016-11-26 04:10] VITALS: BP 108/61
[2016-11-26 06:00] VITALS: BP 125/56
[2016-11-26 06:30] LABS: ANION GAP 6 MEQ/L (8-16); BLOOD UREA NITROGEN 10 MG/DL (7-18); CALCIUM LEVEL 8.2 MG/DL (8.5-10.1); CARBON DIOXIDE LEVEL 27 MEQ/L (21-32); CHLORIDE LEVEL 107 MEQ/L (98-107); CREATININE FOR GFR 0.87 MG/DL (0.70-1.30); GLOMERULAR FILTRATION RATE > 60.0 (>60); GLUCOSE, FASTING 111 MG/DL (70-105); POTASSIUM SERUM 3.5 MEQ/L (3.5-5.1); SODIUM LEVEL 140 MEQ/L (136-145)
[2016-11-26 06:33] LABS: MEAN CORPUSCULAR HEMOGLOBIN 29.9 pg (27.0-33.0); MEAN CORPUSCULAR HGB CONC 33.8 g/dl (32.0-36.5); MEAN CORPUSCULAR VOLUME 88.4 fl (80.0-96.0); RED CELL DISTRIBUTION WIDTH 12.6 % (11.5-14.5); WHITE BLOOD COUNT 12.2 K/mm3 (4.0-10.0)
[2016-11-26] MEDS ORDERED: INFLUENZA QUADRIVALENT PF VACCINE 0.5ML SYRINGE/VIAL (90686) IM ONE (06:45)
--- NOTE | 2016-11-26 07:22 | PHACANCOPD ---
PHARMACY VANCOMYCIN DOSING Pt Demographics Demographics Patient Age:26 , Weight:66.000 , Gender: male Adjusted Body Weight Date: 11/26/16, Adjusted Body Weight: Kg Events Past 24 Hours Events Past 24 Hours: YES: Elevation in WBC, Other (ELEVATED CRP, WORSENING CELLULITIS POST BACTRIM AND CLINDAMYCIN), Pending Diagnostics Vancomycin Vancomycin indication: L knee cellulitis Vancomycin Target Ranges: 10-20 mcg/ml Vancomycin Load Y/N: No Load Dose Date Time Vancomycin Load Dose: Date: Time: Vancomycin Dose Date: 11/26/16. Current Vancomycin Dose: [1g IV Q8H] Intermittent Dosing?: No Labs Labs Item Value Date Time White Blood Count 12.2 K/mm3 H 11/26/16 0548 White Blood Count 13.2 K/mm3 H 11/26/16 0026 C-Reactive Protein, Quantitative 4.97 MG/DL H 11/26/16 0548 C-Reactive Protein, Quantitative 5.46 MG/DL H 11/26/16 0026 Micro Microbiology 11/26/16 Blood Culture, Received Pending 11/26/16 Blood Culture, Received Pending Creatinine Clearance Date:11/26/16. Estimated Creatinine Clearance: [> 100 ml/min]. Pending Labs Vancomycin trough scheduled 11/27/16 @ 1000, prior to 5th dose Assessment and Plan Maintaining Current Dose?: Yes Reason for dose change: No Dose Change Pharmacist Note Pharmacist Note Date: 11/26/16. Pharmacist note: Day #1 empiric zosyn/vancomycin therapy initiated at 1g IV Q8H for the treatment of left knee cellulitis - aiming for a goal trough of 10-20 mcg/ml. WBC and CRP are currently elevated, and patient is afebrile. Blood cultures are pending. The patient was given IV clindamycin and started on oral bactrim 11/23/16 after which time the patient's cellulitis worsened and he returned to the ED. A trough level has been scheduled 11/27/16 @ 1000, prior to the 5th dose. We will continue to monitor the patient and make dose adjustments as needed. [facility] Nov 26, 2016 07:22
--- NOTE | 2016-11-26 07:48 | CR ---
DATE OF CONSULTATION: 11/26/2016 REASON FOR CONSULTATION: Redness left knee. 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 He went to the emergency room two days ago. He had some mild redness and low inflammatory markers. He was given a dose of antibiotics and then oral antibiotics were started. He was told to followup the next day, which he did last evening, and came in last evening in the emergency room once again. His CRP had gone up to 5 and there was some increased redness. No fluctuance. He was admitted to the hospitalist service for IV antibiotics now to get this under control and I was called to see him for that. He is otherwise fairly healthy other than a seizure disorder and a history of back surgery. MEDICATIONS: Keppra, Tegretol, and now on oral Bactrim and pain medications. ALLERGIES: None. PREVIOUS SURGERIES: Spine surgery for L2 spine fracture three years ago, cared for at [facility]. He does smoke cigarettes. He does not drink alcohol excessively. He works construction as mentioned. REVIEW OF SYSTEMS: Health survey is otherwise unremarkable. PHYSICAL EXAMINATION: Alert and oriented male otherwise. His blood pressure is 117/86, pulse 82, respirations 18, temperature 96. Oxygen saturation on room air 96%. Body mass index (BMI) 18.94. His left knee shows some mild redness in the prepatellar area. No effusion. Excellent range of motion of the knee. No irritability with motion, but there is some slight induration and slight fullness right directly anteriorly in the prepatellar bursa, but there is no fluctuance noted or drainable abscess that I could appreciate. Distal neurovascular exam is unremarkable. His white count was 13.2 with a hematocrit of 41.9. Sedimentation rate 7. CRP 5.46. He has already received a dose of piperacillin and vancomycin in the emergency room and he says this morning actually that his knee is already starting to feel better. IMPRESSION: This is a localized skin infection anterior to his left knee. There is no fluctuance or mass or surgical indication. I think this should be well managed with appropriate antibiotics. I also suggest using warm moist soaks to help as well. I can just be called if his troubles worsen or a true abscess develops or any other surgical indication that develops, to please reconsult.
[2016-11-26] MEDS ORDERED: PIPERACILLIN/TAZOBACTAM SOD 3.375 GM in D5W MINI-BAG PLUS 50 ML IV SCH (08:00)
[2016-11-26 09:00] VITALS: BP 125/56
[2016-11-26] MEDS ORDERED: carBAMazepine XR 200 MG TAB PO SCH (09:00)
[2016-11-26] MEDS ORDERED: MULTIVITAMINS/MINERALS THERAP 1 TAB PO SCH (09:00)
[2016-11-26] MEDS ORDERED: levETIRAcetam 250MG TABLET (KEPPRA) PO SCH (09:00)
[2016-11-26] MEDS ORDERED: OMEGA-3 1050MG CAPSULE PO SCH (09:00)
[2016-11-26] MEDS ORDERED: VANCOMYCIN HCL 1,000 MG, VIAL MATE ADAPTER 1 EACH in D5W 250 ML IV SCH (11:00)
[2016-11-26] MEDS ORDERED: CEFTAROLINE FOSAMIL 600 MG in D5W MINI-BAG PLUS 50 ML IV SCH (12:00)
--- NOTE | 2016-11-26 16:36 | DSES ---
DATE OF ADMISSION: 11/26/2016 DATE OF DISCHARGE AGAINST MEDICAL ADVICE: 11/26/2016 PRIMARY CARE PROVIDER: None. CONSULTANTS: Orthopedic surgery, Dr. Mayes PROCEDURES: None. COMPLICATIONS: None. ADMISSION/DISCHARGE DIAGNOSES: 1. Left knee cellulitis. 2. History of seizure disorder. HOSPITALIZATION COURSE: Patient is a 26-year-old male, initially presented to [facility] emergency room on 11/24/2016 for left knee swelling and redness. Patient received intravenous (IV) clindamycin and discharged from the emergency room with Bactrim; however, patient stated he only took one to two days of Bactrim and he did not notice any significant improvement. Patient came back to [facility] on 11/26/2016 for further evaluation. During the evaluation, patient was found to have an elevated C-reactive protein (CRP) and erythrocyte sedimentation rate and worsening of the erythema that crossed over the area circled by the surgical marker of a few days ago, so patient was admitted to the medical/surgical floor and was started on IV vancomycin and IV Zosyn and orthopedic team was consulted. However, within 12 hours after admission, patient stated he noticed that the swelling and erythema of his left knee is improving, and he does not feel like staying in the hospital. I spent a lengthy time discussing this with him, stating his cellulitis is improving due to the IV antibiotics and it is not appropriate for him to discharge from the hospital with incomplete antibiotic treatments; however, patient insisted he can just go home and he will be fine and he would just start taking the Bactrim that he was given a few days ago. However, I explained to the patient that he was on the Bactrim for a few days and there was no significant improvement of his infection and patient may need some other form of antibiotic. Patient understands the risks and the benefits of hospitalization and he insists to sign out against medical advice. VITAL SIGNS: Temperature 97.7, pulse 67, respirations 16, blood pressure 125/56, pulse oximetry 97% on room air. WBC 12.2, hemoglobin 12.8, hematocrit 38, platelet count 159. Sodium 140, potassium 3.5, chloride 107, carbon dioxide 27, BUN 10, creatinine 0.87, GFR greater than 60, fasting glucose 111, calcium 8.2. C-reactive protein initially was 5.046. Blood cultures pending times two. Methicillin-resistant Staphylococcus aureus (MRSA) screening is pending. DISCHARGE INSTRUCTIONS: Patient signed out against medical advice. Patient does not have a primary care provider (PCP). I strongly encouraged patient establish with a primary care provider. DISCHARGE CONDITION: Fair. DISCHARGE TIME: Greater than 30 minutes.
--- NOTE | 2016-11-28 05:01 | EDDOCDS ---
Physician Documentation [facility] Name: Hari Ventura Age: 26 yrs Sex: Male : 1990 Arrival Date: 11/25/2016 Time: 21:13 Bed 7 Private MD: NO PRIMARY PHYSICIAN, . Disposition: 11/26/16 01:58 Hospitalization ordered by Eri Antoine for Inpatient Admission. Preliminary diagnosis is Cellulitis of left lower limb - LEFT KNEE. - Bed requested for 4 [place]. - Status is Inpatient Admission. js15 - Condition is Stable. - Problem is new. - Symptoms have improved. Historical: - Allergies: No known drug Allergies; - Home Meds: 1. Keppra 1,000 mg Oral tab 3 tab daily 2. Tegretol 200 mg Oral tab 1 tab every 12 hours 3. Bactrim DS 800-160 mg Oral tab 1 tab every 12 hours 4. hydrocodone-acetaminophen 5-325 mg Oral tab 1 tab every 6 hours (Last dose: 11/25/2016 18:00) - PMHx: Seizure Disorder; - PSHx: spinal surgery for broken L2 2 rods and 4 screws placed in lumbar area.; - Social history: Smoking status: Patient uses tobacco products, current every day smoker. No barriers to communication noted, The patient speaks fluent Hong Konger, Speaks appropriately for age, Preferred Language: [place] Konger. - Family history: Not pertinent. - : The pt / caregiver states he / she is not on anticoagulants. Home medication list is obtained from the patient. - Exposure Risk Screening:: None identified. Vital Signs: 11/25 21:15 BP 120 / 59; Pulse 72; Resp 18 S; Temp 98.6(O); Pulse Ox 97% on R/A; Weight 59.87 kg / gr2 131.99 lbs (R); Height 5 ft. 10 in. (177.80 cm) (R); Pain 5/10; 11/26 00:00 BP 136 / 79; Pulse 84; Resp 18; Temp 97.9(TE); Pulse Ox 98% on R/A; Pain 7/10; lf1 03:23 BP 117 / 86; Pulse 82; Resp 18; Temp 96.0(O); Pulse Ox 97% on R/A; Pain 1/10; js15 11/25 21:15 Body Mass Index 18.94 (59.87 kg, 177.80 cm) gr2 MDM: 00:07 HYDROcodone-acetaminophen 5 mg-325 mg 1 tabs PO once ordered. ck7 00:08 CBC with Diff Ordered. EDMS 00:08 ESR Ordered. EDMS 00:08 CRP Ordered. EDMS 01:10 CBC with Diff Reviewed. ck7 01:10 CRP Reviewed. ck7 01:17 ESR Reviewed. ck7 01:26 IV Saline Lock ordered. ck7 01:44 CBC with Diff Reviewed. ck7 01:44 ESR Reviewed. ck7 01:47 Financial registration complete. hs2 01:57 vancomycin 1 grams IVPB once over 60 mins; dilute in 250mL of NS or D5W ordered. ck7 01:57 Piperacillin-Tazobactam 3.375 grams IVPB once over 30 mins; dilute in 50mL of NS or D5W ck7 ordered. 01:58 BED REQUEST+ADM ordered. EDMS 02:49 Admission / Observation Status ordered. EDMS 02:51 REGULAR DIET ordered. EDMS 02:51 BASIC METABOLIC PROFILE Ordered. EDMS 02:51 COMPLETE BLOOD COUNT Ordered. EDMS 02:51 C REACTIVE PROTEIN QUANTITATIV Ordered. EDMS 02:53 [place] was scanned into [employer] and attached to record. hs2 03:03 MRSA SCREEN Ordered. EDMS 03:03 BLOOD CULTURES Ordered. EDMS 03:03 BLOOD CULTURES Ordered. EDMS 10:44 T-Sheet-- Draft Copy was scanned into [employer] and attached to record. gb Administered Medications: 01:10 Drug: HYDROcodone-acetaminophen 1 tabs [hydrocodone 5 mg-acetaminophen 325 mg tablet (1 js15 tabs)] Route: PO; 02:19 Drug: Piperacillin-Tazobactam 3.375 grams [piperacillin-tazobactam 3.375 gram js15 intravenous solution] Route: IVPB; Infused Over: 30 mins; Site: right forearm; 03:35 Drug: vancomycin 1 grams [vancomycin 1,000 mg intravenous injection] Route: IVPB; js15 Infused Over: 60 mins; Site: right forearm; Signatures: Dispatcher [employer] EDMS Alvina Abraham, Reg Reg gb Joseph Shetty, Dock Pumper Unit ml3 Shea Miller RN RN lf1 Olvin Mattson, RPA-C RPA-Cck7 Eri Arora,RN RN js15 Celsa Muniz, Reg Reg hs2 The chart was reviewed and I authenticate all verbal orders and agree with the evaluation and treatment provided.Attachments: 02:53 [facility] Payment Agreement hs2 10:44 T-Sheet-- Draft Copy gb Chart Complete MTDD
--- NOTE | 2016-11-28 05:01 | EDDOCDS ---
Nurse's Notes [facility] Name: Hari Ventura Age: 26 yrs Sex: Male : 1990 Arrival Date: 11/25/2016 Time: 21:13 Bed 7 Private MD: NO PRIMARY PHYSICIAN, . Diagnosis: Cellulitis of left lower limb-LEFT KNEE Presentation: 11/25 21:38 Presenting complaint: Patient states: Was seen last night for left knee cellulitis, pt. lf1 states it was outlined and it has now moved about an inch outside the border. Pain is currently 7/10 and described as burning. Adult Sepsis Screening: The patient does not have new or worsening altered mentation. Patient's respiratory rate is less than 22. Systolic blood pressure is greater than 100. Patient has a qSOFA score of 0- Negative Sepsis Screen. Suicide/Homicide risk assessment- the patient denies having any suicidal and/or homicidal ideations and does not present with any other emotional, behavioral or mental health complaints. Status: Patient is not a sales and service engineer or dependent. Transition of care: patient was not received from another setting of care. 21:38 Acuity: ESTELLE Level 3 lf1 21:38 Method Of Arrival: Walkin/Carried/Asstd lf1 Triage Assessment: 21:41 General: Appears comfortable, Behavior is cooperative. Pain: Location: lateral aspect lf1 of left knee, posterior aspect of left knee, medial aspect of left knee and left knee Pain currently is 7 out of 10 on a pain scale. HIV screening NA for this visit Offered previously. Neurological: Level of Consciousness is awake, alert. Respiratory: Respiratory effort is even, unlabored. GI: Denies nausea, vomiting. Derm: Reports redness and swelling to left knee - unable to visualize in Triage area due to clothing. Historical: - Allergies: No known drug Allergies; - Home Meds: 1. Keppra 1,000 mg Oral tab 3 tab daily 2. Tegretol 200 mg Oral tab 1 tab every 12 hours 3. Bactrim DS 800-160 mg Oral tab 1 tab every 12 hours 4. hydrocodone-acetaminophen 5-325 mg Oral tab 1 tab every 6 hours (Last dose: 11/25/2016 18:00) - PMHx: Seizure Disorder; - PSHx: spinal surgery for broken L2 2 rods and 4 screws placed in lumbar area.; - Social history: Smoking status: Patient uses tobacco products, current every day smoker. No barriers to communication noted, The patient speaks fluent Citizen [place], Speaks appropriately for age, Preferred Language: Citizen [place]. - Family history: Not pertinent. - : The pt / caregiver states he / she is not on anticoagulants. Home medication list is obtained from the patient. - Exposure Risk Screening:: None identified. Screenin:42 Screening information is obtained from the patient. Fall risk: No risks identified. lf1 Assistance ADL's: requires no assistance with activities of daily living. Abuse/DV Screen: The patient / caregiver reports he/she is: not in a situation that causes fear, pain or injury. Nutritional screening: No deficits noted. Advance Directives: Currently, there is no health care proxy. home support is adequate. Assessment: 11/26 00:00 Adult Sepsis Screening: The patient does not have new or worsening altered mentation. lf1 Patient's respiratory rate is less than 22. Systolic blood pressure is greater than 100. Patient has a qSOFA score of 0- Negative Sepsis Screen. General: Appears in no apparent distress, comfortable, Behavior is anxious, cooperative. Pain: Location: left knee Pain currently is 7 out of 10 on a pain scale. Neurological: Level of Consciousness is awake, alert. Respiratory: Respiratory effort is even, unlabored. GI: Denies nausea, vomiting. 01:00 General: Appears in no apparent distress, comfortable, Behavior is appropriate for age, js15 cooperative. Neurological: Level of Consciousness is awake, alert, obeys commands, Oriented to person, place, time. Cardiovascular: Capillary refill < 3 seconds. Respiratory: Airway is patent Respiratory effort is even, unlabored, Respiratory pattern is regular, symmetrical. Derm: Skin is red, Swollen area noted on left knee. 02:15 Reassessment: Patient appears in no apparent distress at this time. Pt resting on js15 stretcher, awake and alert; respirations even and unlabored; skin warm, dry. 03:30 Reassessment: Patient appears in no apparent distress at this time. Patient denies pain js15 at this time. Patient states feeling better. Patient states symptoms have improved. Pt resting comfortably on stretcher, lights dimmed; respirations even and unlabored; skin warm, dry. Vital Signs: 11/25 21:15 BP 120 / 59; Pulse 72; Resp 18 S; Temp 98.6(O); Pulse Ox 97% on R/A; Weight 59.87 kg gr2 (R); Height 5 ft. 10 in. (177.80 cm) (R); Pain 5/10; 11/26 00:00 BP 136 / 79; Pulse 84; Resp 18; Temp 97.9(TE); Pulse Ox 98% on R/A; Pain 7/10; lf1 03:23 BP 117 / 86; Pulse 82; Resp 18; Temp 96.0(O); Pulse Ox 97% on R/A; Pain 1/10; js15 11/25 21:15 Body Mass Index 18.94 (59.87 kg, 177.80 cm) gr2 Vitals: 11/25 21:15 Log In Time: November 25, 2016 at 21:15. gr2 ED Course: 21:14 Patient visited by Latasha Ramos. gr2 21:14 Patient moved to Waiting gr2 21:15 NO PRIMARY PHYSICIAN, . is Private Physician. gr2 21:16 Patient visited by Latasha Ramos. gr2 21:16 Patient moved to Pre RCE gr2 21:39 Triage Initiated lf1 23:58 Patient moved to 7 cz 11/26 00:00 Patient visited by Shea Miller,RN. lf1 00:01 Patient visited by Shea Miller,JAGDEEP. lf1 00:02 Olvin Mattson RPA-C is PHCP. ck7 00:02 Milton Stoner DO is Attending Physician. ck7 00:02 Patient visited by Olvin Mattson RPA-C. ck7 00:35 Patient visited by Olvin Mattson RPA-C. ck7 00:35 CRP Sent. cln 00:35 ESR Sent. cln 00:35 CBC with Diff Sent. cln 01:10 Patient visited by Olvin Mattson RPA-C. ck7 01:45 Patient visited by Olvin Mattson RPA-C. ck7 01:49 Inserted saline lock: 18 gauge in right forearm The patient tolerated the procedure js15 well. 01:58 Eri Antoine is Hospitalizing Provider. ck7 02:00 The patient / caregiver is instructed regarding the plan of care and ED course. js15 02:53 [facility] [place] Payment Agreement was scanned into [employer] and attached to record. hs2 03:58 No procedures done that require assistance. js15 10:44 T-Sheet-- Draft Copy was scanned into [employer] and attached to record. gb Administered Medications: 01:10 Drug: HYDROcodone-acetaminophen 1 tabs [hydrocodone 5 mg-acetaminophen 325 mg tablet (1 js15 tabs)] Route: PO; 02:19 Drug: Piperacillin-Tazobactam 3.375 grams [piperacillin-tazobactam 3.375 gram js15 intravenous solution] Route: IVPB; Infused Over: 30 mins; Site: right forearm; 03:35 Drug: vancomycin 1 grams [vancomycin 1,000 mg intravenous injection] Route: IVPB; js15 Infused Over: 60 mins; Site: right forearm; Order Results: Lab Order: CBC with Diff; SPEC'M 11/26/16 00:26 Test: WHITE BLOOD COUNT; Value: 13.2; Range: 4.0-10.0; Abnormal: Above high normal; Units: K/mm3; Status: F Test: RED BLOOD COUNT; Value: 4.75; Range: 4.30-6.10; Units: M/mm3; Status: F Test: HEMOGLOBIN; Value: 13.8; Range: 14.0-18.0; Abnormal: Below low normal; Units: g/dl; Status: F Test: HEMATOCRIT; Value: 41.9; Range: 42.0-52.0; Abnormal: Below low normal; Units: %; Status: F Test: MEAN CORPUSCULAR VOLUME; Value: 88.3; Range: 80.0-96.0; Units: fl; Status: F Test: MEAN CORPUSCULAR HEMOGLOBIN; Value: 29.1; Range: 27.0-33.0; Units: pg; Status: F Test: MEAN CORPUSCULAR HGB CONC; Value: 33.0; Range: 32.0-36.5; Units: g/dl; Status: F Test: RED CELL DISTRIBUTION WIDTH; Value: 11.7; Range: 11.5-14.5; Units: %; Status: F Test: PLATELET COUNT, AUTOMATED; Value: 176; Range: 150-450; Units: k/mm3; Status: F Test: NEUTROPHILS %; Value: 67.5; Range: 36.0-66.0; Abnormal: Above high normal; Units: %; Status: F Test: LYMPH %; Value: 25.6; Range: 24.0-44.0; Units: %; Status: F Test: MONO %; Value: 4.0; Range: 0.0-5.0; Units: %; Status: F Test: EOS %; Value: 1.2; Range: 0.0-3.0; Units: %; Status: F Test: BASO %; Value: 0.5; Range: 0.0-1.0; Units: %; Status: F Test: LARGE UNSTAINED CELL %; Value: 1.2; Range: 0.0-4.0; Units: %; Status: F Test: NEUTROPHILS #; Value: 8.9; Range: 1.8-7.7; Abnormal: Above high normal; Units: K/mm3; Status: F Test: LYMPH #; Value: 3.4; Range: 1.5-6.5; Units: K/mm3; Status: F Test: MONO #; Value: 0.5; Range: 0.0-0.8; Units: K/mm3; Status: F Test: EOS #; Value: 0.2; Range: 0.0-0.50; Units: K/mm3; Status: F Test: BASO #; Value: 0.1; Range: 0.0-0.2; Units: K/mm3; Status: F Test: LARGE UNSTAINED CELL #; Value: 0.2; Range: 0.0-0.4; Units: K/mm3; Status: F Lab Order: ESR; SPEC'M 11/26/16 00:26 Test: ERYTHROCYTE SEDIMENTATION RATE; Value: 7; Range: 0-15; Units: mm/hr; Status: F Lab Order: CRP; SPEC'M 11/26/16 00:26 Test: C REACTIVE PROTEIN QUANTITATIV; Value: 5.46; Range: 0.00-0.30; Abnormal: Above high normal; Units: MG/DL; Status: F Outcome: 01:58 Decision to Hospitalize by Provider. ck7 03:58 Discharge Assessment: Patient awake, alert and oriented x 3. No cognitive and/or js15 functional deficits noted. Patient verbalized understanding of disposition instructions. patient administered narcotics - yes. Patient was admitted to the hospital or transferred to another facility. The following High Risk Discharge criteria are identified: None. Admitted to Med/Surg accompanied by tech, via stretcher, with chart. Condition: unchanged. No special radiology studies were completed. Property :Personal belongings accompany Pt. 04:00 Patient left the ED. js15 Signatures: Ethan Ortega, RN RN cz Alvina Abraham, Reg Reg gb Shea MillerRN RN lf1 Olvin Mattson, RPA-C RPA-Cck7 Latasha Ramos gr2 Eri AroraRN RN js15 Celsa Muniz, Reg Reg hs2 Katie Javier, TRACE JOB SETTER HONING cln Chart Complete MTDD
--- NOTE | 2016-11-28 05:01 | EDDOCDS ---
Physician Documentation [facility] Name: Hari Ventura Age: 26 yrs Sex: Male : 1990 Arrival Date: 11/25/2016 Time: 21:13 Bed 7 Private MD: NO PRIMARY PHYSICIAN, . Disposition: 11/26/16 01:58 Hospitalization ordered by Eri Antoine for Inpatient Admission. Preliminary diagnosis is Cellulitis of left lower limb - LEFT KNEE. - Bed requested for 4 [place]. - Status is Inpatient Admission. js15 - Condition is Stable. - Problem is new. - Symptoms have improved. Historical: - Allergies: No known drug Allergies; - Home Meds: 1. Keppra 1,000 mg Oral tab 3 tab daily 2. Tegretol 200 mg Oral tab 1 tab every 12 hours 3. Bactrim DS 800-160 mg Oral tab 1 tab every 12 hours 4. hydrocodone-acetaminophen 5-325 mg Oral tab 1 tab every 6 hours (Last dose: 11/25/2016 18:00) - PMHx: Seizure Disorder; - PSHx: spinal surgery for broken L2 2 rods and 4 screws placed in lumbar area.; - Social history: Smoking status: Patient uses tobacco products, current every day smoker. No barriers to communication noted, The patient speaks fluent Thai, Speaks appropriately for age, Preferred Language: Thai. - Family history: Not pertinent. - : The pt / caregiver states he / she is not on anticoagulants. Home medication list is obtained from the patient. - Exposure Risk Screening:: None identified. Vital Signs: 11/25 21:15 BP 120 / 59; Pulse 72; Resp 18 S; Temp 98.6(O); Pulse Ox 97% on R/A; Weight 59.87 kg / gr2 131.99 lbs (R); Height 5 ft. 10 in. (177.80 cm) (R); Pain 5/10; 11/26 00:00 BP 136 / 79; Pulse 84; Resp 18; Temp 97.9(TE); Pulse Ox 98% on R/A; Pain 7/10; lf1 03:23 BP 117 / 86; Pulse 82; Resp 18; Temp 96.0(O); Pulse Ox 97% on R/A; Pain 1/10; js15 11/25 21:15 Body Mass Index 18.94 (59.87 kg, 177.80 cm) gr2 MDM: 00:07 HYDROcodone-acetaminophen 5 mg-325 mg 1 tabs PO once ordered. ck7 00:08 CBC with Diff Ordered. EDMS 00:08 ESR Ordered. EDMS 00:08 CRP Ordered. EDMS 01:10 CBC with Diff Reviewed. ck7 01:10 CRP Reviewed. ck7 01:17 ESR Reviewed. ck7 01:26 IV Saline Lock ordered. ck7 01:44 CBC with Diff Reviewed. ck7 01:44 ESR Reviewed. ck7 01:47 Financial registration complete. hs2 01:57 vancomycin 1 grams IVPB once over 60 mins; dilute in 250mL of NS or D5W ordered. ck7 01:57 Piperacillin-Tazobactam 3.375 grams IVPB once over 30 mins; dilute in 50mL of NS or D5W ck7 ordered. 01:58 BED REQUEST+ADM ordered. EDMS 02:49 Admission / Observation Status ordered. EDMS 02:51 REGULAR DIET ordered. EDMS 02:51 BASIC METABOLIC PROFILE Ordered. EDMS 02:51 COMPLETE BLOOD COUNT Ordered. EDMS 02:51 C REACTIVE PROTEIN QUANTITATIV Ordered. EDMS 02:53 [facility] [place] Payment Agreement was scanned into [employer] and attached to record. hs2 03:03 MRSA SCREEN Ordered. EDMS 03:03 BLOOD CULTURES Ordered. EDMS 03:03 BLOOD CULTURES Ordered. EDMS 10:44 T-Sheet-- Draft Copy was scanned into [employer] and attached to record. gb Administered Medications: 01:10 Drug: HYDROcodone-acetaminophen 1 tabs [hydrocodone 5 mg-acetaminophen 325 mg tablet (1 js15 tabs)] Route: PO; 02:19 Drug: Piperacillin-Tazobactam 3.375 grams [piperacillin-tazobactam 3.375 gram js15 intravenous solution] Route: IVPB; Infused Over: 30 mins; Site: right forearm; 03:35 Drug: vancomycin 1 grams [vancomycin 1,000 mg intravenous injection] Route: IVPB; js15 Infused Over: 60 mins; Site: right forearm; Signatures: Dispatcher [employer]Host EDMS Alvina Abraham, Reg Reg gb Joseph Shetty, Cocoa Roaster Unit ml3 Shea Miller RN RN lf1 Olvin Mattson, RPA-C RPA-Cck7 Eri Arora,RN RN js15 Celsa Muniz, Reg Reg hs2 The chart was reviewed and I authenticate all verbal orders and agree with the evaluation and treatment provided.Attachments: 02:53 [facility] Payment Agreement hs2 10:44 T-Sheet-- Draft Copy gb Chart Complete MTDD
== END 2016-11-26 13:25 | disposition left against medical advice (07) | DRG 383 ==
LOC: M ED 21:13 → M ED INP 11-26 02:47 → M MSPAV 11-26 04:08
PROVIDERS: ADMIT Hospitalist; ATTEND Internal Medicine
DX: L03.116 Cellulitis of left lower limb (principal); F17.210 Nicotine dependence, cigarettes, uncomplicated; G40.909 Epilepsy, unspecified, not intractable, without status epilepticus; Z79.899 Other long term (current) drug therapy

== ENCOUNTER 2016-11-28 09:48 | Emergency (ER) | payer OTHER ==
[~2016-11-28 09:48] MED LIST: BACT800T5 PO; CARB400T4 PO; FISH1000 PO; HYDR-3716 PO; KEPP1000 PO; VITMTA PO
--- NOTE | 2016-11-28 10:33 | EDDOCDS ---
Physician Documentation [facility] Name: Hari Ventura Age: 26 yrs Sex: Male : 1990 Arrival Date: 11/28/2016 Time: 09:48 Bed TR2 Private MD: NO PRIMARY PHYSICIAN, . Disposition: 11/28/16 10:17 Discharged to Home/Self Care. Impression: Cellulitis of left lower limb - knee, resolving. - Condition is Stable. - Discharge Instructions: Cellulitis, [id number]. - Medication Reconciliation, Local Pharmacy Hours form. - Follow up: Orthopaedics, [facility]; When: Tomorrow; Reason: Further diagnostic work-up, Recheck today's complaints, Continuance of care. - Problem is an ongoing problem. - Symptoms have improved. Historical: - Allergies: No known drug Allergies; - Home Meds: 1. Bactrim DS 800-160 mg Oral tab 1 tab every 12 hours 2. Keppra 1,000 mg Oral tab 3 tab daily 3. Tegretol 200 mg Oral tab 1 tab every 12 hours - PMHx: Seizure Disorder; - PSHx: spinal surgery for broken L2 2 rods and 4 screws placed in lumbar area.; - Social history: Smoking status: Patient uses tobacco products, heavy tobacco smoker. No barriers to communication noted, The patient speaks fluent Yoruba, Speaks appropriately for age. - Family history: Not pertinent. - : The pt / caregiver states he / she is not on anticoagulants. Home medication list is obtained from the patient. - Exposure Risk Screening:: None identified. Vital Signs: 11/28 09:49 BP 138 / 67; Pulse 73; Resp 16; Temp 97.5(O); Pulse Ox 99% on R/A; Weight 64.41 kg / elp 142 lbs (R); Height 5 ft. 9 in. (175.26 cm) (R); Pain 8/10; 09:49 Body Mass Index 20.97 (64.41 kg, 175.26 cm) elp MDM: 10:31 [facility] Payment Agreement was scanned into [employer] and attached to record. jp5 10:32 Financial registration complete. jp5 Signatures: Rochelle Vasquez RN RN ck1 Brokolynn Angel RN RN jo3 Tony Gonzalez PA PA btw Price, Jennalee jp5 The chart was reviewed and I authenticate all verbal orders and agree with the evaluation and treatment provided.Attachments: 10:31 [facility] Payment Agreement jp5 MTDD
--- NOTE | 2016-11-28 10:33 | EDDOCDS ---
Nurse's Notes [facility] Name: Hari Ventura Age: 26 yrs Sex: Male : 1990 Arrival Date: 11/28/2016 Time: 09:48 Bed TR2 Private MD: NO PRIMARY PHYSICIAN, . Diagnosis: Cellulitis of left lower limb-knee, resolving Presentation: 11/28 09:57 Presenting complaint: Patient states: Was admitted Friday for cellulitis of the left jo3 knee and left AMA because he had to take care of his family. Back today because cellulitis is worse. Adult Sepsis Screening: The patient does not have new or worsening altered mentation. Patient's respiratory rate is less than 22. Systolic blood pressure is greater than 100. Patient has a qSOFA score of 0- Negative Sepsis Screen. Suicide/Homicide risk assessment- the patient denies having any suicidal and/or homicidal ideations and does not present with any other emotional, behavioral or mental health complaints. Status: Patient is not a prepared foods service team member or dependent. Transition of care: patient was not received from another setting of care. 09:57 Acuity: ESTELLE Level 3 jo3 09:57 Method Of Arrival: Walkin/Carried/Asstd jo3 Triage Assessment: 10:00 General: Appears in no apparent distress, comfortable, Behavior is appropriate for age, jo3 cooperative. Pain: Pain currently is 8 out of 10 on a pain scale. HIV screening NA for this visit Offered previously. Neurological: Level of Consciousness is awake, alert, Oriented to person, place, time. Historical: - Allergies: No known drug Allergies; - Home Meds: 1. Bactrim DS 800-160 mg Oral tab 1 tab every 12 hours 2. Keppra 1,000 mg Oral tab 3 tab daily 3. Tegretol 200 mg Oral tab 1 tab every 12 hours - PMHx: Seizure Disorder; - PSHx: spinal surgery for broken L2 2 rods and 4 screws placed in lumbar area.; - Social history: Smoking status: Patient uses tobacco products, heavy tobacco smoker. No barriers to communication noted, The patient speaks fluent Kosovan, Speaks appropriately for age. - Family history: Not pertinent. - : The pt / caregiver states he / she is not on anticoagulants. Home medication list is obtained from the patient. - Exposure Risk Screening:: None identified. Screenin:31 Screening information is obtained from the patient. Fall risk: No risks identified. ck1 Assistance ADL's: requires no assistance with activities of daily living. Abuse/DV Screen: The patient / caregiver reports he/she is: not in a situation that causes fear, pain or injury. Nutritional screening: No deficits noted. Advance Directives: Currently, there is no health care proxy. home support is adequate. Assessment: 10:32 General: Appears in no apparent distress, comfortable, Behavior is appropriate for age, ck1 cooperative. Pain: Location: left knee Pain currently is 7 out of 10 on a pain scale. Respiratory: No deficits noted. Derm: Skin is intact, is healthy with good turgor, Skin is pink, warm & dry. Musculoskeletal: Circulation, motion, and sensation intact Range of motion intact in all extremities. Vital Signs: 09:49 BP 138 / 67; Pulse 73; Resp 16; Temp 97.5(O); Pulse Ox 99% on R/A; Weight 64.41 kg (R); elp Height 5 ft. 9 in. (175.26 cm) (R); Pain 8/10; 09:49 Body Mass Index 20.97 (64.41 kg, 175.26 cm) el Vitals: 09:49 Log In Time: November 28, 2016 at 09:45. [facility] ED Course: 09:49 Patient visited by Katie Canales PCA. elp 09:49 NO PRIMARY PHYSICIAN, . is Private Physician. elp 09:49 Patient moved to Waiting elp 09:50 Patient visited by Katie Canales PCA. elp 09:50 Patient moved to Pre RCE elp 09:59 Triage Initiated jo3 10:01 Patient visited by Brooklynn Angel RN. jo3 10:02 Patient moved to Triage 2 ck1 10:07 [facility] btw 10:07 Carol Head MD is Attending Physician. btw 10:07 Patient visited by Tony Gonzalez PA. btw 10:16 [facility] btw 10:30 No IV's were initiated during this patient's visit. No procedures done that require ck1 assistance. 10:31 Patient moved to TR2 jo3 10:31 The patient / caregiver is instructed regarding the plan of care and ED course. ck1 10:31 [facility] Payment Agreement was scanned into [employer] and attached to record. jp5 Order Results: There are currently no results for this order. Outcome: 10:17 Discharge ordered by Provider. btw 10:31 Discharge Assessment: Patient awake, alert and oriented x 3. No cognitive and/or ck1 functional deficits noted. Patient verbalized understanding of disposition instructions. patient administered narcotics - no. The following High Risk Discharge criteria are identified: None. Discharged to home ambulatory. Condition: stable. Discharge instructions given to patient, Instructed on discharge instructions, follow up and referral plans. medication usage, Demonstrated understanding of instructions, medications, Pt was receptive of discharge instructions/ teaching. No special radiology studies were completed. Property :Personal belongings accompany Pt. 10:32 Patient left the ED. ck1 Signatures: Rochelle Vasquez,RN RN ck1 Brooklynn AngelRN RN jo3 Tony Gonzalez PA PA btw Katie Canales PCA PCA elp Price, Jennalee jp5 DANNY
--- NOTE | 2016-11-30 11:33 | EDDOCDS ---
Nurse's Notes [facility] Name: Hari Ventura Age: 26 yrs Sex: Male : 1990 Arrival Date: 11/28/2016 Time: 09:48 Bed TR2 Private MD: NO PRIMARY PHYSICIAN, . Diagnosis: Cellulitis of left lower limb-knee, resolving Presentation: 11/28 09:57 Presenting complaint: Patient states: Was admitted Friday for cellulitis of the left jo3 knee and left AMA because he had to take care of his family. Back today because cellulitis is worse. Adult Sepsis Screening: The patient does not have new or worsening altered mentation. Patient's respiratory rate is less than 22. Systolic blood pressure is greater than 100. Patient has a qSOFA score of 0- Negative Sepsis Screen. Suicide/Homicide risk assessment- the patient denies having any suicidal and/or homicidal ideations and does not present with any other emotional, behavioral or mental health complaints. Status: Patient is not a auto service mechanic or dependent. Transition of care: patient was not received from another setting of care. 09:57 Acuity: ESTELLE Level 3 jo3 09:57 Method Of Arrival: Walkin/Carried/Asstd jo3 Triage Assessment: 10:00 General: Appears in no apparent distress, comfortable, Behavior is appropriate for age, jo3 cooperative. Pain: Pain currently is 8 out of 10 on a pain scale. HIV screening NA for this visit Offered previously. Neurological: Level of Consciousness is awake, alert, Oriented to person, place, time. Historical: - Allergies: No known drug Allergies; - Home Meds: 1. Bactrim DS 800-160 mg Oral tab 1 tab every 12 hours 2. Keppra 1,000 mg Oral tab 3 tab daily 3. Tegretol 200 mg Oral tab 1 tab every 12 hours - PMHx: Seizure Disorder; - PSHx: spinal surgery for broken L2 2 rods and 4 screws placed in lumbar area.; - Social history: Smoking status: Patient uses tobacco products, heavy tobacco smoker. No barriers to communication noted, The patient speaks fluent Sudanese, Speaks appropriately for age. - Family history: Not pertinent. - : The pt / caregiver states he / she is not on anticoagulants. Home medication list is obtained from the patient. - Exposure Risk Screening:: None identified. Screenin:31 Screening information is obtained from the patient. Fall risk: No risks identified. ck1 Assistance ADL's: requires no assistance with activities of daily living. Abuse/DV Screen: The patient / caregiver reports he/she is: not in a situation that causes fear, pain or injury. Nutritional screening: No deficits noted. Advance Directives: Currently, there is no health care proxy. home support is adequate. Assessment: 10:32 General: Appears in no apparent distress, comfortable, Behavior is appropriate for age, ck1 cooperative. Pain: Location: left knee Pain currently is 7 out of 10 on a pain scale. Respiratory: No deficits noted. Derm: Skin is intact, is healthy with good turgor, Skin is pink, warm & dry. Musculoskeletal: Circulation, motion, and sensation intact Range of motion intact in all extremities. Vital Signs: 09:49 BP 138 / 67; Pulse 73; Resp 16; Temp 97.5(O); Pulse Ox 99% on R/A; Weight 64.41 kg (R); elp Height 5 ft. 9 in. (175.26 cm) (R); Pain 8/10; 09:49 Body Mass Index 20.97 (64.41 kg, 175.26 cm) el Vitals: 09:49 Log In Time: November 28, 2016 at 09:45. [facility] ED Course: 09:49 Patient visited by Katie Canales PCA. elp 09:49 NO PRIMARY PHYSICIAN, . is Private Physician. elp 09:49 Patient moved to Waiting elp 09:50 Patient visited by Katie Canales PCA. elp 09:50 Patient moved to Pre RCE elp 09:59 Triage Initiated jo3 10:01 Patient visited by Brooklynn Angel RN. jo3 10:02 Patient moved to Triage 2 ck1 10:07 [facility] btw 10:07 Carol Head MD is Attending Physician. btw 10:07 Patient visited by Tony Gonzalez PA. btw 10:16 [facility]. btw 10:30 No IV's were initiated during this patient's visit. No procedures done that require ck1 assistance. 10:31 Patient moved to TR2 jo3 10:31 The patient / caregiver is instructed regarding the plan of care and ED course. ck1 10:31 [facility] Payment Agreement was scanned into [employer] and attached to record. jp5 11/29 11:44 T-Sheet-- Draft Copy was scanned into [employer] and attached to record. gb Order Results: There are currently no results for this order. Outcome: 11/28 10:17 Discharge ordered by Provider. btw 10:31 Discharge Assessment: Patient awake, alert and oriented x 3. No cognitive and/or ck1 functional deficits noted. Patient verbalized understanding of disposition instructions. patient administered narcotics - no. The following High Risk Discharge criteria are identified: None. Discharged to home ambulatory. Condition: stable. Discharge instructions given to patient, Instructed on discharge instructions, follow up and referral plans. medication usage, Demonstrated understanding of instructions, medications, Pt was receptive of discharge instructions/ teaching. No special radiology studies were completed. Property :Personal belongings accompany Pt. 10:32 Patient left the ED. ck1 Signatures: Alvina Abraham, Reg Reg gb Rochelle Vasquez,RN RN ck1 Brooklynn Angel,RN RN jo3 Tony Gonzalez PA PA btw Katie Canales, KILN FEEDER KILN FEEDER Chandrika Arrieta jp5 Chart Complete MTDD
--- NOTE | 2016-11-30 11:33 | EDDOCDS ---
Physician Documentation [facility] Name: Hari Ventura Age: 26 yrs Sex: Male : 1990 Arrival Date: 11/28/2016 Time: 09:48 Bed TR2 Private MD: NO PRIMARY PHYSICIAN, . Disposition: 11/28/16 10:17 Discharged to Home/Self Care. Impression: Cellulitis of left lower limb - knee, resolving. - Condition is Stable. - Discharge Instructions: Cellulitis, [id number]. - Medication Reconciliation, Local Pharmacy Hours form. - Follow up: Orthopaedics, [facility]; When: Tomorrow; Reason: Further diagnostic work-up, Recheck today's complaints, Continuance of care. - Problem is an ongoing problem. - Symptoms have improved. Historical: - Allergies: No known drug Allergies; - Home Meds: 1. Bactrim DS 800-160 mg Oral tab 1 tab every 12 hours 2. Keppra 1,000 mg Oral tab 3 tab daily 3. Tegretol 200 mg Oral tab 1 tab every 12 hours - PMHx: Seizure Disorder; - PSHx: spinal surgery for broken L2 2 rods and 4 screws placed in lumbar area.; - Social history: Smoking status: Patient uses tobacco products, heavy tobacco smoker. No barriers to communication noted, The patient speaks fluent Faroese, Speaks appropriately for age. - Family history: Not pertinent. - : The pt / caregiver states he / she is not on anticoagulants. Home medication list is obtained from the patient. - Exposure Risk Screening:: None identified. Vital Signs: 11/28 09:49 BP 138 / 67; Pulse 73; Resp 16; Temp 97.5(O); Pulse Ox 99% on R/A; Weight 64.41 kg / elp 142 lbs (R); Height 5 ft. 9 in. (175.26 cm) (R); Pain 8/10; 09:49 Body Mass Index 20.97 (64.41 kg, 175.26 cm) elp MDM: 10:31 [facility] [place] Agreement was scanned into [employer] and attached to record. jp5 10:32 Financial registration complete. jp5 11/29 11:44 T-Sheet-- Draft Copy was scanned into [employer] and attached to record. gb Signatures: Alvina Abraham, Reg Reg gb Rochelle Vasquez,RN RN ck1 Brooklynn Angel,RN RN jo3 Tony Gonzalez PA PA btw Price, Jennalee jp5 The chart was reviewed and I authenticate all verbal orders and agree with the evaluation and treatment provided.Attachments: 11/28 10:31 [facility] Payment Agreement jp5 11/29 11:44 T-Sheet-- Draft Copy gb Chart Complete MTDD
--- NOTE | 2016-11-30 11:33 | EDDOCDS ---
Physician Documentation [facility] Name: Hari Ventura Age: 26 yrs Sex: Male : 1990 Arrival Date: 11/28/2016 Time: 09:48 Bed TR2 Private MD: NO PRIMARY PHYSICIAN, . Disposition: 11/28/16 10:17 Discharged to Home/Self Care. Impression: Cellulitis of left lower limb - knee, resolving. - Condition is Stable. - Discharge Instructions: Cellulitis, [id number]. - Medication Reconciliation, Local Pharmacy Hours form. - Follow up: Orthopaedics, [facility]; When: Tomorrow; Reason: Further diagnostic work-up, Recheck today's complaints, Continuance of care. - Problem is an ongoing problem. - Symptoms have improved. Historical: - Allergies: No known drug Allergies; - Home Meds: 1. Bactrim DS 800-160 mg Oral tab 1 tab every 12 hours 2. Keppra 1,000 mg Oral tab 3 tab daily 3. Tegretol 200 mg Oral tab 1 tab every 12 hours - PMHx: Seizure Disorder; - PSHx: spinal surgery for broken L2 2 rods and 4 screws placed in lumbar area.; - Social history: Smoking status: Patient uses tobacco products, heavy tobacco smoker. No barriers to communication noted, The patient speaks fluent Persian, Speaks appropriately for age. - Family history: Not pertinent. - : The pt / caregiver states he / she is not on anticoagulants. Home medication list is obtained from the patient. - Exposure Risk Screening:: None identified. Vital Signs: 11/28 09:49 BP 138 / 67; Pulse 73; Resp 16; Temp 97.5(O); Pulse Ox 99% on R/A; Weight 64.41 kg / elp 142 lbs (R); Height 5 ft. 9 in. (175.26 cm) (R); Pain 8/10; 09:49 Body Mass Index 20.97 (64.41 kg, 175.26 cm) elp MDM: 10:31 [facility] [place] Payment Agreement was scanned into [employer] and attached to record. jp5 10:32 Financial registration complete. jp5 11/29 11:44 T-Sheet-- Draft Copy was scanned into [employer] and attached to record. gb Signatures: Alvina Abraham, Reg Reg gb Rochelle Vasquez,RN RN ck1 Brooklynn Angel,RN RN jo3 Tony Gonzalez PA PA btw Price, Jennalee jp5 The chart was reviewed and I authenticate all verbal orders and agree with the evaluation and treatment provided.Attachments: 11/28 10:31 [facility] Payment Agreement jp5 11/29 11:44 T-Sheet-- Draft Copy gb Chart Complete MTDD
== END 2016-11-28 10:32 | disposition home or self-care (01) ==
LOC: M ED 09:48
DX: L03.116 Cellulitis of left lower limb (principal); G40.909 Epilepsy, unspecified, not intractable, without status epilepticus; Z79.899 Other long term (current) drug therapy; Z79.2 Long term (current) use of antibiotics; F17.210 Nicotine dependence, cigarettes, uncomplicated

== ENCOUNTER → 2017-02-25 | Outpatient (REF) | payer OTHER ==
[2017-02-25 12:21] LABS: BASO % 0.5 % (0.0-1.0); EOS # 0.1 K/mm3 (0.0-0.50); EOS % 2.4 % (0.0-3.0); LARGE UNSTAINED CELL # 0.1 K/mm3 (0.0-0.4); LARGE UNSTAINED CELL % 1.8 % (0.0-4.0); LYMPH # 2.6 K/mm3 (1.5-6.5); LYMPH % 44.4 % (24.0-44.0); MEAN CORPUSCULAR HEMOGLOBIN 31.4 pg (27.0-33.0); MEAN CORPUSCULAR HGB CONC 33.5 g/dl (32.0-36.5); MEAN CORPUSCULAR VOLUME 93.6 fl (80.0-96.0); MONO # 0.3 K/mm3 (0.0-0.8); MONO % 4.7 % (0.0-5.0); NEUTROPHILS # 2.7 K/mm3 (1.8-7.7); NEUTROPHILS % 46.1 % (36.0-66.0); PLATELET COUNT, AUTOMATED 198 k/mm3 (150-450); RED CELL DISTRIBUTION WIDTH 12.1 % (11.5-14.5); WHITE BLOOD COUNT 5.8 K/mm3 (4.0-10.0)
[2017-02-25 12:22] LABS: ALBUMIN 3.8 GM/DL (3.2-5.2); ALBUMIN/GLOBULIN RATIO 1.31 (1.00-1.93); ALKALINE PHOSPHATASE 94 U/L (45-117); ALT/SGPT 21 U/L (12-78); ANION GAP 4 MEQ/L (8-16); AST/SGOT 17 U/L (15-37); BILIRUBIN,TOTAL 0.5 MG/DL (0.2-1.0); BLOOD UREA NITROGEN 6 MG/DL (7-18); CALCIUM LEVEL 8.5 MG/DL (8.5-10.1); CARBAMAZEPINE (TEGRETOL) LEVEL 7.1 UG/ML (4.0-10.0); CARBON DIOXIDE LEVEL 29 MEQ/L (21-32); CHLORIDE LEVEL 109 MEQ/L (98-107); CREATININE FOR GFR 0.81 MG/DL (0.70-1.30); GLOMERULAR FILTRATION RATE > 60.0 (>60); GLUCOSE, FASTING 115 MG/DL (70-105); POTASSIUM SERUM 4.5 MEQ/L (3.5-5.1); SODIUM LEVEL 142 MEQ/L (136-145); TOTAL PROTEIN 6.7 GM/DL (6.4-8.2)
== END ==
LOC: M LABNEURO 11:08
PROVIDERS: ATTEND Psychiatry & Neurology Neurology
DX: R56.9 Unspecified convulsions (principal)

== ENCOUNTER → 2018-07-22 | Outpatient (CLI) | payer OTHER ==
[2018-07-22 20:03] LABS: BASO # 0.1 10^3/uL (0.0-0.2); BASO % 0.8 % (0.0-1.0); HEMOGLOBIN 15.4 g/dl (13.5-17.5); IMMATURE GRANULOCYTE % 0.2 % (0-3.0); LYMPH # 2.9 10^3/uL (1.5-6.5); LYMPH % 47.8 % (24.0-44.0); MEAN CORPUSCULAR HEMOGLOBIN 30.3 pg (27.0-33.0); MEAN CORPUSCULAR VOLUME 86.4 fl (80.0-96.0); MONO # 0.3 10^3/uL (0.0-0.8); MONO % 5.5 % (0.0-5.0); NEUTROPHILS # 2.8 10^3/uL (1.8-7.7); NEUTROPHILS % 45.7 % (36.0-66.0); PLATELET COUNT, AUTOMATED 192 10^3/uL (150-450); RED BLOOD COUNT 5.09 10^6/uL (4.30-6.10); RED CELL DISTRIBUTION WIDTH 12.2 % (11.5-14.5); WHITE BLOOD COUNT 6.1 10^3/uL (4.0-10.0)
[2018-07-22 20:21] LABS: ALBUMIN 3.9 GM/DL (3.2-5.2); ALBUMIN/GLOBULIN RATIO 1.44 (1.00-1.93); ALKALINE PHOSPHATASE 83 U/L (45-117); ALT/SGPT 20 U/L (12-78); ANION GAP 8 MEQ/L (8-16); AST/SGOT 14 U/L (7-37); BILIRUBIN,TOTAL 0.6 MG/DL (0.2-1.0); BLOOD UREA NITROGEN 8 MG/DL (7-18); CARBON DIOXIDE LEVEL 28 MEQ/L (21-32); CHLORIDE LEVEL 107 MEQ/L (98-107); CREATININE FOR GFR 0.78 MG/DL (0.70-1.30); GLOMERULAR FILTRATION RATE > 60.0 (>60); GLUCOSE, FASTING 87 MG/DL (70-100); POTASSIUM SERUM 3.9 MEQ/L (3.5-5.1); SODIUM LEVEL 143 MEQ/L (136-145); TOTAL PROTEIN 6.6 GM/DL (6.4-8.2)
[2018-07-28 00:07] LABS: LEVETIRACETAM (KEPPRA) 35.3 ug/mL (10.0-40.0)
[2018-07-28 00:07] LABS: FREE CARBAMAZEPINE,FREE TEGRET 1.7 ug/mL (0.6-4.2)
== END ==
LOC: M LABDRWAD 13:06
DX: G40.209 Localization-related (focal) (partial) symptomatic epilepsy and epileptic syndromes with complex partial seizures, not intractable, without status epilepticus (principal); G43.009 Migraine without aura, not intractable, without status migrainosus; G40.309 Generalized idiopathic epilepsy and epileptic syndromes, not intractable, without status epilepticus
CPT/HCPCS: 80053

== ENCOUNTER → 2019-09-21 | Outpatient (CLI) | payer OTHER ==
[~2019-09-21] MED LIST changes: -KEPP1000 PO; +KEPP10002 PO
--- NOTE | 2019-09-21 19:59 | REP ---
RIGHT FIFTH DIGIT, FOUR VIEWS: Four views of the right fifth digit performed. There is no acute fracture, dislocation or intrinsic bone disease. IMPRESSION: No fracture or dislocation. Electronically Signed by Jose Luis Cruz MD 09/22/2019 10:06 A
== END ==
LOC: M ADAMS 18:39
PROVIDERS: ATTEND Physician Assistant Medical
DX: M79.644 Pain in right finger(s) (principal)

== ENCOUNTER → 2020-04-21 | Outpatient (REF) | payer OTHER ==
[2020-04-21 14:19] LABS: BASO # 0.1 10^3/uL (0.0-0.2); BASO % 0.5 % (0.0-1.0); EOS % 0.1 % (0.0-3.0); HEMATOCRIT 44.8 % (42.0-52.0); HEMOGLOBIN 14.9 g/dl (13.5-17.5); LYMPH % 41.1 % (24.0-44.0); MEAN CORPUSCULAR HGB CONC 33.3 g/dl (32.0-36.5); MEAN CORPUSCULAR VOLUME 90.3 fl (80.0-96.0); MONO # 0.4 10^3/uL (0.0-0.8); MONO % 4.2 % (0.0-5.0); NEUTROPHILS # 5.2 10^3/uL (1.5-8.5); NEUTROPHILS % 53.9 % (36.0-66.0); PLATELET COUNT, AUTOMATED 219 10^3/uL (150-450); RED BLOOD COUNT 4.96 10^6/uL (4.30-6.10); WHITE BLOOD COUNT 9.7 10^3/uL (4.0-10.0)
[2020-04-21 14:24] LABS: ALBUMIN 3.7 GM/DL (3.2-5.2); ALT/SGPT 29 U/L (12-78); BILIRUBIN,TOTAL 0.4 MG/DL (0.2-1.0); BLOOD UREA NITROGEN 7 MG/DL (7-18); CALCIUM LEVEL 8.9 MG/DL (8.5-10.1); CARBAMAZEPINE (TEGRETOL) LEVEL 5.5 UG/ML (4.0-10.0); CARBON DIOXIDE LEVEL 28 MEQ/L (21-32); CHLORIDE LEVEL 107 MEQ/L (98-107); CREATININE FOR GFR 0.85 MG/DL (0.70-1.30); GLOMERULAR FILTRATION RATE > 60.0 (>60); GLUCOSE, FASTING 118 MG/DL (70-100); SODIUM LEVEL 141 MEQ/L (136-145); TOTAL PROTEIN 6.5 GM/DL (6.4-8.2)
== END ==
LOC: M LABDRWAD 12:57
PROVIDERS: ATTEND Psychiatry & Neurology Neurology
DX: G40.909 Epilepsy, unspecified, not intractable, without status epilepticus (principal)

== ENCOUNTER → 2021-06-08 | Outpatient (REF) | payer OTHER, MEDICAID ==
[2021-06-08 14:46] LABS: BASO # 0.1 10^3/uL (0.0-0.2); BASO % 0.6 % (0.0-1.0); EOS # 0.2 10^3/uL (0.0-0.5); EOS % 2.7 % (0.0-3.0); HEMATOCRIT 43.3 % (42.0-52.0); HEMOGLOBIN 14.6 g/dl (13.5-17.5); LYMPH # 2.6 10^3/uL (1.5-5.0); LYMPH % 29.1 % (24.0-44.0); MEAN CORPUSCULAR HEMOGLOBIN 30.3 pg (27.0-33.0); MEAN CORPUSCULAR HGB CONC 33.7 g/dl (32.0-36.5); MEAN CORPUSCULAR VOLUME 89.8 fl (80.0-96.0); MONO # 0.4 10^3/uL (0.0-0.8); MONO % 4.6 % (2.0-8.0); NEUTROPHILS # 5.7 10^3/uL (1.5-8.5); NEUTROPHILS % 62.8 % (36.0-66.0); PLATELET COUNT, AUTOMATED 208 10^3/uL (150-450); RED BLOOD COUNT 4.82 10^6/uL (4.30-6.10); WHITE BLOOD COUNT 9.1 10^3/uL (4.0-10.0)
[2021-06-08 15:16] LABS: ALBUMIN 3.5 GM/DL (3.2-5.2); ALT/SGPT 30 U/L (12-78); BILIRUBIN,TOTAL 0.8 MG/DL (0.2-1.0); BLOOD UREA NITROGEN 8 MG/DL (7-18); CALCIUM LEVEL 8.6 MG/DL (8.5-10.1); CARBON DIOXIDE LEVEL 28 MEQ/L (21-32); CHLORIDE LEVEL 111 MEQ/L (98-107); CHOLESTEROL LEVEL 135 MG/DL (<200); GLOMERULAR FILTRATION RATE > 60.0 (>60); GLUCOSE, FASTING 83 MG/DL (70-100); HDL CHOLESTEROL 50 MG/DL (>40); LDL CHOLESTEROL 75 MG/DL (<100); NON-HDL-C 85 MG/DL; POTASSIUM SERUM 4.2 MEQ/L (3.5-5.1); SODIUM LEVEL 143 MEQ/L (136-145); THYROID STIMULATING HORMONE 0.993 uIU/ML (0.358-3.740); TOTAL PROTEIN 6.3 GM/DL (6.4-8.2); TRIGLYCERIDES LEVEL 52 MG/DL (<150)
== END ==
LOC: M SFHCADAM 10:59
PROVIDERS: ATTEND Family Medicine
DX: Z00.00 Encounter for general adult medical examination without abnormal findings (principal); G40.909 Epilepsy, unspecified, not intractable, without status epilepticus; F41.9 Anxiety disorder, unspecified

== ENCOUNTER 2022-09-09 15:46 | Inpatient (IN) | payer MEDICAID, OTHER ==
[~2022-09-09] VITALS: Ht 177.8 cm; Wt 70.0 kg
[2022-09-09 17:52] LABS: HEMATOCRIT 47.7 % (42.0-52.0); HEMOGLOBIN 15.7 g/dl (13.5-17.5); MEAN CORPUSCULAR HEMOGLOBIN 30.7 pg (27.0-33.0); MEAN CORPUSCULAR HGB CONC 32.9 g/dl (32.0-36.5); MEAN CORPUSCULAR VOLUME 93.2 fl (80.0-96.0); PLATELET COUNT, AUTOMATED 204 10^3/uL (150-450); RED BLOOD COUNT 5.12 10^6/uL (4.30-6.10); WHITE BLOOD COUNT 9.3 10^3/uL (4.0-10.0)
[2022-09-09 18:25] LABS: ACETAMINOPHEN LEVEL < 2.0 UG/ML (10.0-30.0); ALBUMIN 3.7 GM/DL (3.2-5.2); ALT/SGPT 25 U/L (12-78); BILIRUBIN,DIRECT 0.2 MG/DL (0.0-0.2); BILIRUBIN,TOTAL 0.4 MG/DL (0.2-1.0); BLOOD UREA NITROGEN 6 MG/DL (7-18); CALCIUM LEVEL 9.3 MG/DL (8.5-10.1); CARBON DIOXIDE LEVEL 30 MEQ/L (21-32); CHLORIDE LEVEL 110 MEQ/L (98-107); CREATININE FOR GFR 0.71 MG/DL (0.70-1.30); ETHYL ALCOHOL (ETHANOL) < 0.003 % (0.000-0.010); GLOMERULAR FILTRATION RATE > 60.0 (>60); GLUCOSE, FASTING 82 MG/DL (70-100); POTASSIUM SERUM 4.6 MEQ/L (3.5-5.1); SALICYLATE LEVEL 4.9 MG/DL (5.0-30.0); SODIUM LEVEL 143 MEQ/L (136-145); THYROID STIMULATING HORMONE 0.856 uIU/ML (0.358-3.740); TOTAL PROTEIN 6.9 GM/DL (6.4-8.2)
[2022-09-09 18:29] LABS: RSV AMPLIFICATION NEGATIVE (NEGATIVE)
[2022-09-09 18:34] LABS: AMPHETAMINES LEVEL URINE NEGATIVE (NEGATIVE); BARBITURATES URINE NEGATIVE (NEGATIVE); BENZODIAZEPINES URINE NEGATIVE (NEGATIVE); CANNABINOIDS URINE POSITIVE (NEGATIVE); COCAINE METABOLITE URINE NEGATIVE (NEGATIVE); METHADONE URINE NEGATIVE (NEGATIVE); OPIATES URINE NEGATIVE (NEGATIVE); PHENCYCLIDINE URINE NEGATIVE (NEGATIVE)
[2022-09-09] MEDS ORDERED: SUMA100T2 PO (19:46)
[2022-09-09] MEDS ORDERED: OMEGCAP4 PO (19:46)
[2022-09-09] MEDS ORDERED: EXCETAB32 PO (19:47)
[2022-09-09] MEDS ORDERED: HOME MED LIST COMPLETE! XX SCH (19:50)
[2022-09-09] MEDS ORDERED: levETIRAcetam 250MG TABLET (KEPPRA) PO ONE (20:00)
[2022-09-09] MEDS ORDERED: carBAMazepine 200MG TABLET PO ONE (20:00)
[2022-09-09] MEDS: SUMAtriptan SUCCINATE 25 MG TAB PO ONE ×2 (20:05→21:00)
[2022-09-10] MEDS ORDERED: EXCETAB32 PO (02:42)
[2022-09-10] MEDS ORDERED: SUMAtriptan SUCCINATE 25 MG TAB PO SCH (09:00)
[2022-09-10] MEDS: levETIRAcetam 250MG TABLET (KEPPRA) PO SCH ×2 (09:16→21:38)
[2022-09-10] MEDS: carBAMazepine XR 200 MG TAB PO SCH ×2 (10:24→21:38)
[2022-09-11] MEDS: NICOTINE 21MG/24HR 1 EA TRANSDERMAL TD SCH (09:00)
[2022-09-11] MEDS: levETIRAcetam 250MG TABLET (KEPPRA) PO SCH ×2 (09:13→21:30)
[2022-09-11] MEDS: carBAMazepine XR 200 MG TAB PO SCH ×2 (09:13→21:29)
[2022-09-11 15:05] LABS: RSV AMPLIFICATION NEGATIVE (NEGATIVE)
[2022-09-11] MEDS ORDERED: MOM 30ML SUSPENSION UDC PO PRN (16:45)
[2022-09-11] MEDS ORDERED: ACETAMINOPHEN TAB 650MG DOSE (2X325MG) PO PRN (16:45)
[2022-09-11] MEDS ORDERED: traZODone 50 MG TAB PO PRN (16:45)
[2022-09-11] MEDS ORDERED: MAALOX 30 ML SUSP *UDC PO PRN (16:45)
[2022-09-11 21:00] VITALS: BP 145/80
[2022-09-12 06:09] VITALS: BP 128/64
[2022-09-12] MEDS: levETIRAcetam 250MG TABLET (KEPPRA) PO SCH ×2 (07:40→20:20)
[2022-09-12] MEDS: carBAMazepine XR 200 MG TAB PO SCH ×2 (07:40→20:20)
[2022-09-12] MEDS: NICOTINE 21MG/24HR 1 EA TRANSDERMAL TD SCH (07:48)
[2022-09-12] MEDS ORDERED: INFLUENZA QUADRIVALENT PF VACCINE 0.5ML SYRINGE IM.IMMUN ONE (09:00)
[2022-09-12 18:29] VITALS: BP 140/81
[2022-09-13] MEDS: carBAMazepine XR 200 MG TAB PO SCH (08:02)
[2022-09-13] MEDS: levETIRAcetam 250MG TABLET (KEPPRA) PO SCH (08:02)
[2022-09-13] MEDS: NICOTINE 21MG/24HR 1 EA TRANSDERMAL TD SCH (08:04)
[2022-09-13] MEDS ORDERED: NICO21PAT TD (08:09)
== END 2022-09-13 09:58 | disposition home or self-care (01) | DRG 753 ==
LOC: M ED 15:46 → M ED INP 09-11 16:43 → M PSY 09-11 20:43
PROVIDERS: ADMIT Psychiatry & Neurology Psychiatry; ATTEND Psychiatry & Neurology Psychiatry
DX: F39 Unspecified mood [affective] disorder (principal); F17.210 Nicotine dependence, cigarettes, uncomplicated; R45.851 Suicidal ideations; G40.909 Epilepsy, unspecified, not intractable, without status epilepticus; Z20.822 Contact with and (suspected) exposure to COVID-19; Z79.899 Other long term (current) drug therapy

== ENCOUNTER → 2023-01-21 | Outpatient (CLI) | payer MEDICAID ==
[~2023-01-21] MED LIST changes: +EXCETAB32 PO; +NICO21PAT TD; +OMEGCAP4 PO; +SUMA100T2 PO
[2023-01-21 13:41] LABS: BASO # 0.1 10^3/uL (0.0-0.2); BASO % 0.6 % (0.0-1.0); EOS # 0.1 10^3/uL (0.0-0.5); EOS % 0.4 % (0.0-3.0); HEMATOCRIT 45.4 % (42.0-52.0); HEMOGLOBIN 15.1 g/dl (13.5-17.5); LYMPH # 3.5 10^3/uL (1.5-5.0); LYMPH % 29.9 % (24.0-44.0); MEAN CORPUSCULAR HEMOGLOBIN 30.2 pg (27.0-33.0); MEAN CORPUSCULAR HGB CONC 33.3 g/dl (32.0-36.5); MEAN CORPUSCULAR VOLUME 90.8 fl (80.0-96.0); MONO # 0.4 10^3/uL (0.0-0.8); MONO % 3.5 % (2.0-8.0); NEUTROPHILS # 7.6 10^3/uL (1.5-8.5); NEUTROPHILS % 65.4 % (36.0-66.0); PLATELET COUNT, AUTOMATED 207 10^3/uL (150-450); WHITE BLOOD COUNT 11.6 10^3/uL (4.0-10.0)
[2023-01-21 14:02] LABS: ALBUMIN 3.6 G/DL (3.2-5.2); ALKALINE PHOSPHATASE 92 U/L (46-116); ALT/SGPT 24 U/L (7.0-40); AST/SGOT 20 U/L (<34); BILIRUBIN,TOTAL 0.4 MG/DL (0.3-1.2); BLOOD UREA NITROGEN 5 MG/DL (9-23); CALCIUM LEVEL 8.9 MG/DL (8.5-10.1); CARBON DIOXIDE LEVEL 28 MMOL/L (20-31); CHLORIDE LEVEL 108 MMOL/L (98-107); CREATININE FOR GFR 0.66 MG/DL (0.70-1.30); GLOMERULAR FILTRATION RATE > 60.0 (>60); GLUCOSE, FASTING 56 MG/DL (60-100); SODIUM LEVEL 140 MMOL/L (136-145); TOTAL PROTEIN 6.1 G/DL (5.7-8.2)
[2023-01-21 14:04] LABS: FOLATE 4.5 NG/ML (>5.4); TOTAL 25(OH) VITAMIN D 13.5 NG/ML (20.0-100.0)
[2023-01-21 14:05] LABS: VITAMIN B12 LEVEL 1290 PG/ML (211-911)
== END ==
LOC: M LABDRWAD 09:02
PROVIDERS: ATTEND Psychiatry & Neurology Neurology
DX: R56.9 Unspecified convulsions (principal); E53.8 Deficiency of other specified B group vitamins; E55.9 Vitamin D deficiency, unspecified

== ENCOUNTER → 2023-02-20 | Outpatient (CLI) | payer MEDICAID, OTHER ==
[2023-02-20 10:29] LABS: BASO # 0.1 10^3/uL (0.0-0.2); BASO % 0.6 % (0.0-1.0); EOS % 0.1 % (0.0-3.0); HEMATOCRIT 45.3 % (42.0-52.0); HEMOGLOBIN 15.5 g/dl (13.5-17.5); LYMPH # 3.4 10^3/uL (1.5-5.0); LYMPH % 32.3 % (24.0-44.0); MEAN CORPUSCULAR HEMOGLOBIN 30.2 pg (27.0-33.0); MEAN CORPUSCULAR HGB CONC 34.2 g/dl (32.0-36.5); MEAN CORPUSCULAR VOLUME 88.3 fl (80.0-96.0); MONO # 0.5 10^3/uL (0.0-0.8); MONO % 4.6 % (2.0-8.0); NEUTROPHILS # 6.5 10^3/uL (1.5-8.5); NEUTROPHILS % 62.2 % (36.0-66.0); PLATELET COUNT, AUTOMATED 229 10^3/uL (150-450); RED BLOOD COUNT 5.13 10^6/uL (4.30-6.10); WHITE BLOOD COUNT 10.4 10^3/uL (4.0-10.0)
[2023-02-20 10:39] LABS: ERYTHROCYTE SEDIMENTATION RATE 3 mm/hr (0-15)
[2023-02-20 10:56] LABS: ALBUMIN 3.7 G/DL (3.2-5.2); ALKALINE PHOSPHATASE 98 U/L (46-116); ALT/SGPT 20 U/L (7.0-40); AST/SGOT 19 U/L (<34); BILIRUBIN,TOTAL 0.3 MG/DL (0.3-1.2); BLOOD UREA NITROGEN 9 MG/DL (9-23); C REACTIVE PROTEIN QUANTITATIV < 0.40 MG/DL (<1.0); CARBON DIOXIDE LEVEL 28 MMOL/L (20-31); CHLORIDE LEVEL 107 MMOL/L (98-107); CREATININE FOR GFR 0.81 MG/DL (0.70-1.30); GLOMERULAR FILTRATION RATE > 60.0 (>60); GLUCOSE, FASTING 95 MG/DL (60-100); SODIUM LEVEL 139 MMOL/L (136-145); TOTAL PROTEIN 6.5 G/DL (5.7-8.2)
== END ==
LOC: M PLAIMG 09:37
PROVIDERS: ATTEND Physician Assistant
DX: M79.89 Other specified soft tissue disorders (principal)

== ENCOUNTER → 2023-03-07 | Outpatient (CLI) | payer OTHER | LOC: M PLAIMG 07:11 | PROVIDERS: ATTEND Physician Assistant | DX: L08.9 Local infection of the skin and subcutaneous tissue, unspecified (principal); M79.5 Residual foreign body in soft tissue; M79.644 Pain in right finger(s) ==

== ENCOUNTER → 2023-03-14 | Day surgery (SDC) | payer OTHER ==
[~2023-03-14] VITALS: Ht 177.8 cm; Wt 66.2 kg
[~2023-03-14] MED LIST changes: +FOLI1TAB11 PO; +ceFAZolin SOD 2 GM in IV 1 EA IV ONE
== END | disposition home or self-care (01) ==
LOC: M SDC 15:23
PROVIDERS: ATTEND Orthopaedic Surgery Hand Surgery
DX: S60.351A Superficial foreign body of right thumb, initial encounter (principal); Z53.9 Procedure and treatment not carried out, unspecified reason

== ENCOUNTER 2023-03-17 07:35 | Day surgery (SDC) | payer OTHER ==
[~2023-03-17] VITALS: Ht 177.8 cm; Wt 66.0 kg
[~2023-03-17 07:35] MED LIST changes: -ceFAZolin SOD 2 GM in IV 1 EA IV ONE
[2023-03-17] MEDS ORDERED: ceFAZolin SOD 2 GM in IV 1 EA IV ONE (08:05)
[2023-03-17] MEDS ORDERED: propofoL 200 MG/20 ML VIAL As Ordered ONE ×2 (08:27→09:57)
[2023-03-17] MEDS ORDERED: MIDAZOLAM INJ 2MG/2ML VIAL As Ordered ONE (08:27)
[2023-03-17] MEDS ORDERED: LIDOCAINE 2% 100MG/5ML SDV (FOR ANES.) As Ordered ONE (08:27)
[2023-03-17] MEDS ORDERED: fentaNYL 100 MCG/2 ML INJECTION As Ordered ONE (08:28)
[2023-03-17] MEDS ORDERED: BUPIVACAINE HCL 0.25% 30ML VIAL As Ordered ONE (09:23)
[2023-03-17] MEDS ORDERED: ONDANSETRON 4MG 2ML VIAL As Ordered ONE (09:46)
[2023-03-17] MEDS ORDERED: BACITRACIN OINTMENT 30GM TUBE As Ordered ONE (10:03)
[2023-03-17] MEDS ORDERED: KETOROLAC 60MG 2ML VIAL As Ordered ONE (10:07)
[2023-03-17] MEDS ORDERED: LR 1,000 ML IV SCH (10:50)
[2023-03-17] MEDS ORDERED: PERCOCET 5MG/325MG TAB PO PRN (10:50)
[2023-03-17] MEDS ORDERED: ONDANSETRON 4MG 2ML VIAL IV PRN (10:50)
[2023-03-17 11:46] VITALS: BP 123/76
== END 2023-03-17 12:00 | disposition home or self-care (01) ==
LOC: M SDC 07:35
PROVIDERS: ATTEND Orthopaedic Surgery Hand Surgery
DX: S60.351A Superficial foreign body of right thumb, initial encounter (principal); W45.8XXA Other foreign body or object entering through skin, initial encounter; Y92.89 Other specified places as the place of occurrence of the external cause; Y99.9 Unspecified external cause status; Y93.9 Activity, unspecified; G40.909 Epilepsy, unspecified, not intractable, without status epilepticus; Z79.899 Other long term (current) drug therapy
CPT/HCPCS: 10120; 88304; J1100; J1885; J2250; J2405; J3010

== ENCOUNTER → 2025-01-07 | Outpatient (CLI) | payer OTHER ==
[~2025-01-07] MED LIST changes: +CARB400T11 PO; -CARB400T4 PO; +ERGO500029 PO; +LEVE10003 PO; +OMEP40CA5 PO; +TEGR200T PO
[2025-01-07 14:21] LABS: BASO # 0.1 10^3/uL (0.0-0.2); BASO % 0.5 % (0.0-1.0); EOS # 0.1 10^3/uL (0.0-0.5); EOS % 0.5 % (0.0-3.0); HEMATOCRIT 46.6 % (42.0-52.0); HEMOGLOBIN 15.6 g/dl (13.5-17.5); LYMPH # 3.2 10^3/uL (1.5-5.0); MEAN CORPUSCULAR HEMOGLOBIN 30.2 pg (27.0-33.0); MEAN CORPUSCULAR HGB CONC 33.5 g/dl (32.0-36.5); MEAN CORPUSCULAR VOLUME 90.1 fl (80.0-96.0); MONO # 0.6 10^3/uL (0.0-0.8); NEUTROPHILS # 8.8 10^3/uL (1.5-8.5); NEUTROPHILS % 68.8 % (36.0-66.0); PLATELET COUNT, AUTOMATED 213 10^3/uL (150-450); RED BLOOD COUNT 5.17 10^6/uL (4.30-6.10); WHITE BLOOD COUNT 12.7 10^3/uL (4.0-10.0)
[2025-01-07 14:26] LABS: VITAMIN B12 LEVEL 1656 PG/ML (211-911)
[2025-01-07 14:27] LABS: ALBUMIN 3.7 G/DL (3.2-5.2); ALKALINE PHOSPHATASE 100 U/L (40-129); ALT/SGPT 19 U/L (7.0-40); AST/SGOT 14 U/L (<34); BILIRUBIN,TOTAL 0.5 MG/DL (0.3-1.2); BLOOD UREA NITROGEN 6 MG/DL (9-23); CALCIUM LEVEL 9.3 MG/DL (8.5-10.1); CARBON DIOXIDE LEVEL 28 MMOL/L (20-31); CHLORIDE LEVEL 105 MMOL/L (98-107); CREATININE FOR GFR 0.75 MG/DL (0.70-1.30); GLOMERULAR FILTRATION RATE > 60.0 (>60); GLUCOSE, FASTING 94 MG/DL (60-100); POTASSIUM SERUM 3.6 MMOL/L (3.5-5.1); SODIUM LEVEL 143 MMOL/L (136-145); TOTAL PROTEIN 6.7 G/DL (5.7-8.2)
[2025-01-07 14:28] LABS: TOTAL 25(OH) VITAMIN D 28.2 NG/ML (20.0-100.0)
[2025-01-07 14:36] LABS: FOLATE 5.74 NG/ML (>5.4)
[2025-01-09 07:32] LABS: CARBAMAZEPINE (TEGRETOL) SO 4.6 mg/L (4.0-12.0)
[2025-01-12 00:12] LABS: LEVETIRACETAM (KEPPRA) 26.7 mcg/mL (6.0-46.0)
== END ==
LOC: M LABDRWAD 08:26
PROVIDERS: ATTEND Psychiatry & Neurology Neurology
DX: R56.9 Unspecified convulsions (principal); E53.8 Deficiency of other specified B group vitamins; E55.9 Vitamin D deficiency, unspecified